=== PATIENT | male | born 1945 | race Caucasian/White ===

== ENCOUNTER → 2017-03-13 | Outpatient (CLI) | payer MEDICARE ==
--- NOTE | 2017-03-13 09:52 | US ---
EXAMINATION TYPE: US duplex aorta DATE OF EXAM: 03/13/2017 COMPARISON: NONE CLINICAL HISTORY: I73.9 PERIPHERAL VASCULAR DISEASE. Patient stated has bilateral leg cramping after walking for 15 minutes on treadmill and symptoms are relieved by standing still; Cancer survivor for Lung CA and Melanoma EXAM MEASUREMENTS: Abdominal Aorta: Proximal: 2.8cm Transverse and is difficult to visualize due to overlying bowel gas Mid: 2.4cm Transverse Distal: 2.7cm Transverse Bifurcation: 1.6cm Transverse Right Common Iliac Artery; 1.5 cm A/P Left Common Iliac Artery. Upper abdominal aorta size is widened as seen in 2 views, but is limited by overlying bowel gas. Irre gular intimal wall thickening is noted throughout aorta and especially in proximal Common Iliac Arter ies; widening of lower abdominal aorta is imaged, but size is still wnl. Color flow patency and PW Do ppler of Aorta and color flow of Common Iliac Arteries is documented. Exam is suboptimal due to overlying bowel gas. 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 No greater than 3 cm aneurysmal change is clearly seen. IMPRESSION: Suboptimal study with ectasia of the abdominal aorta but no greater than 3 cm aneurysmal change clearly identified.
--- NOTE | 2017-03-21 09:58 | P.ARTDOP ---
Arterial Doppler LOWER EXTREMITY ARTERIAL DOPPLER: DATE OF SERVICE: 03/13/2017 Reason for study: Claudication. Doppler waveforms: Multiphasic but blunted throughout bilaterally. Pulse volume recording: []. Pressure gradients: At the thigh level on the right and below the knee on the left. Mild gradient across the knee on the right. Ankle-brachial indices: 0.85 on the right and 0.92 on the left. Toe pressures: 64 on the right, 78 on the left Impression: Suggests mild bilateral disease. Iliofemoral on the right and femoral popliteal on the left. Clinical correlation recommended.
== END | disposition home or self-care (01) ==
LOC: RADUSWWP 08:07
PROVIDERS: ATTEND Internal Medicine
DX: I77.811 Abdominal aortic ectasia (principal)
CPT/HCPCS: 93923; 93979

== ENCOUNTER → 2017-05-19 | Outpatient (CLI) | payer MEDICARE ==
--- NOTE | 2017-05-21 14:59 | PE ---
Nuclear medicine PET/CT HISTORY: Pancreatic carcinoma, initial, C 25.9 Patient received 15.4 mCi F-18 FDG intravenously in delayed scanning was performed from the skull bas e to the mid thighs. Localization and attenuation correction CT scan was also performed. Comparison to MR abdomen dated 05/16/2017, CT abdomen pelvis 05/07/2017 Neck and chest: There is no evident adenopathy. No suspicious hypermetabolic uptake. No pleural or pe ricardial effusion. Dense atheromatous change present within the aorta, superior aortic branch vessel s. There are coronary artery calcifications. No evident lung mass. Apical pleural thickening is prese nt on the right greater than left. Postop changes are noted status post lobectomy on the right. There is volume loss in the right hemithorax. Abdomen pelvis: There is a drainage catheter present coursing towards the midline the level of the ga stroesophageal junction. Extensive diverticular changes associated with the colon, retained contrast material is likely present. Left inguinal hernia contains fat. No retroperitoneal adenopathy. The head of the pancreas region shows bowel with thickened wall with associated hypermetabolic uptake , SUV is 9.7 Bowel activity likely due to physiologic causes. Prostate is enlarged. There is associated calcificat ion. Postop changes noted along the anterior abdomen, aspen are present. Osseous structures show degenerative changes within the lumbar spine, facet arthropathy changes prese nt. There is a spinal curvature. IMPRESSION: Suspect findings may be postoperative, there may be a Limited duodenitis, follow-up. Dive rticulosis. Postop changes.
== END | disposition home or self-care (01) ==
LOC: RADPETMAIN 13:28
PROVIDERS: ATTEND Internal Medicine Hematology & Oncology
DX: C25.9 Malignant neoplasm of pancreas, unspecified (principal); K57.30 Diverticulosis of large intestine without perforation or abscess without bleeding; Z98.890 Other specified postprocedural states
CPT/HCPCS: 78815; A9552

== ENCOUNTER → 2018-03-19 | Outpatient (CLI) | payer MEDICARE ==
--- NOTE | 2018-03-19 23:00 | CT ---
EXAMINATION TYPE: CT chest w con DATE OF EXAM: 03/19/2018 COMPARISON: PET CT 05/19/2017 HISTORY: 72-year-old male abnormal findings of lung zhong. Technologist reports a history of lung an d pancreas cancer as well as melanoma. Last chemotherapy radiation to08/13/2017. Left Hilar Prominence TECHNIQUE: Contiguous axial scanning of the chest after the administration of 80 mL of Isovue 300. C oronal/sagittal reconstructions performed. CT DLP: 326.8mGycm. Automatic exposure control utilized for a dose reduction. FINDINGS: Heart normal size without pericardial effusion. Coronary vessel calcifications are present. Aorta normal caliber with mild to moderate atherosclerotic arch calcifications and conventional arch vessel branching anatomy. Large caliber to the main right and left pulmonary arteries at 3.3 and 3.1 cm, respectively, suggesti ng underlying pulmonary hypertension. Right anterior chest wall injection port with catheter tip at the mid SVC. Asymmetric elevation of the right hemidiaphragm with some strandy scarring at the right base. There i s moderate centrilobular emphysema and surgical material along the right upper to midlung with strand y scarring extending to the right hilum. Status post right upper lobectomy. Mild diffuse bronchial wa ll thickening. No thoracic lymphadenopathy by CT size criteria. No hilar masses identified. Tiny hiatal hernia. A couple subcentimeter hypodensities within the left hepatic lobe appear to have been present previou sly. Larger hypodense lesion near the gallbladder fossa was also present previously measuring 2.6 cm compatible with a cyst. Postsurgical changes of Whipple there is some prominent lymph nodes in soft t issue stranding in the periaortic region just below the level of the kidneys, for example, the first 2 axial image 75. Surveillance is recommended as these changes may be increased from the 05/19/2017 P ET/CT. Diffuse colonic diverticulosis with diffuse wall thickening. Bones: Endplate spondylosis throughout. No osseous destructive process. IMPRESSION: 1. COPD with moderate emphysema and prior right upper lobectomy. Areas of pleural parenchymal scarrin g, volume loss in the right hemithorax, and surgical material on the right are unchanged. 2. Bilateral hilar enlargement relating to pulmonary arterial hypertension. 3. Status post Whipple procedure. There is some strandy soft tissue thickening and associated promine nt lymph nodes in the retroperitoneum just below the level of the kidneys which may be increased from 05/19/2017. Refer to axial image 17. Appropriate surveillance and follow-up is recommended. 4. Diffuse colonic diverticulosis with mild diffuse colonic wall thickening. Correlate for nonspecifi c colitis.
== END ==
LOC: RADCTMAIN 12:56
PROVIDERS: ATTEND Internal Medicine
DX: J43.9 Emphysema, unspecified (principal); J98.4 Other disorders of lung; I27.21 Secondary pulmonary arterial hypertension; R91.8 Other nonspecific abnormal finding of lung field; Z90.2 Acquired absence of lung [part of]; Z85.118 Personal history of other malignant neoplasm of bronchus and lung
CPT/HCPCS: 82565; 84520; 71260; 36415; Q9967

== ENCOUNTER → 2018-04-11 | Outpatient (CLI) | payer MEDICARE ==
--- NOTE | 2018-04-15 19:05 | BD ---
EXAMINATION TYPE: Axial Bone Density DATE OF EXAM: 04/11/2018 COMPARISON: NONE CLINICAL HISTORY: 72 YR OLD MALE.....ICD-10 CODE: R29.890 HEIGHT LOSS Height: 68.2 Weight: 172 FRAX RISK QUESTIONS: NOTHING TO NOTE HERE RISK FACTORS HISTORY OF: Active: NOT VERY Lost more than 2 inches in height since high school: YES MEDICATIONS: Additional Medications: VITAMINS, HX OF CHEMO AND RADIATION IN PAST, VIT D3, CALCIUM, Additional History: HX OF PANCREATIC CA, LUNG CA AND MELANOMA ...WAS TOLD HE HAS DEFECTIVE DNA.. HX O F BYPASS SURG, VEIN STRIPPING BOTH LEGS. EXAM MEASUREMENTS: Bone mineral densitometry was performed using the [employer] System. Bone mineral density as measured about the Lumbar spine is: ----- L1-L4(G/cm2): 1.388 T Score Values are as follows: ----- L1: 0.1 ----- L2: 0.8 ----- L3: 2.9 ----- L4: 3.1 ----- L1-L4: 1.7 Bone mineral density FIRST BONE DENSITY TEST.....BASELINE STUDY Bone mineral density about the R hip (g/cm2): 0.904 Bone mineral density about the L hip (g/cm2): 1.104 T Score values are as follows: -----R Neck: -0.2 -----L Neck: 0.9 -----R Total: -0.8 -----L Total: 0.8 Bone mineral density FIRST BONE DENSITY .....BASELINE STUDY FRAX%s: THERE IS A 5.1% CHANCE FOR A MAJOR OSTEOPOROTIC FX AND A 0.8% FOR HIP FX.....PROBABILITY O F FX IN 10 YRS TIME IMPRESSION: Normal (Values between +1 and -1 indicate normal bone mass). However, measurements are approaching o steopenia at the right hip. Consider repeating this study in 5 years or sooner if there is some new clinical indication. NOTE: T-SCORE=SD OF THE YOUNG ADULT MEAN.
== END | disposition home or self-care (01) ==
LOC: RADBDWWP 15:50
PROVIDERS: ATTEND Internal Medicine
DX: R29.890 Loss of height (principal)
CPT/HCPCS: 77080

== ENCOUNTER 2018-06-13 15:59 | Inpatient (IN) | payer MEDICARE, OTHER ==
[2018-06-13] MEDS ORDERED: SODIUM CHLORIDE 0.9% 1,000 ML IV STA (16:48)
[2018-06-13] MEDS ORDERED: IPRATROPIUM-ALBUTEROL 3 ML NEB INHALATION STA (16:48)
[2018-06-13] MEDS ORDERED: ACETAMINOPHEN IV (For NPO) 1,000 MG in EMPTY BAG 1 BAG IVPB STA (17:49)
[2018-06-13] MEDS ORDERED: IBUPROFEN IV 800 MG in SODIUM CHLORIDE 0.9% 250 ML IV STA (17:49)
--- NOTE | 2018-06-13 17:49 | ED ---
SOB HPI - General Chief Complaint: Shortness of Breath Stated Complaint: POSS PNEUMO, LOW O2 Time Seen by Provider: 06/13/18 16:43 Source: patient Mode of arrival: wheelchair Limitations: no limitations - History of Present Illness Initial Comments: This is a 72-year-old male the ER for evaluation, he presents today for evaluation of fever shortness of breath cough and congestion weakness 4 days. No nausea no vomiting no diarrhea. Patient having difficulty breathing, sent in by Dr. simons for further evaluation regarding dehydration fever and underlying sepsis. Possible PE. Patient has no recent travel history no sick contacts no recent significant hospitalizations. MD Complaint: shortness of breath, cough -: days(s) (5) Radiation: back Severity: mild Severity scale (1-10): 3 Quality: aching Consistency: constant Improves With: oxygen, bronchodilators Worsens With: exertion Known History Of: COPD, other (Lungs CTA) Context: recent URI, other (Fever) Associated Symptoms: fever, cough, sputum production - Related Data Home Medications Medication Instructions Recorded Confirmed Cholecalciferol [Vitamin D3] 2,000 unit PO DAILY 05/13/15 06/13/18 Fish Oil/Dha/Epa [Fish Oil 1,200 2 cap PO DAILY 05/13/15 06/13/18 mg Fish Oil] Multivitamin/Iron/Folic Acid 1 tab PO DAILY 05/07/17 06/13/18 [Centrum Complete Multivit Tab] Aspirin 81 mg PO DAILY 06/13/18 06/13/18 Allergies Allergy/AdvReac Type Severity Reaction Status Date / Time levofloxacin AdvReac Unknown UNABLE TO Verified 06/13/18 17:31 SLEEP Review of Systems ROS Statement: Those systems with pertinent positive or pertinent negative responses have been documented in the HPI. ROS Other: All systems not noted in ROS Statement are negative. Past Medical History Past Medical History: Cancer, Hyperlipidemia Additional Past Medical History / Comment(s): HX OF LUNG CA WITH 2/3 OF RIGHT LUNG REMOVED (2000), & MELANOMA SKIN CA., HX OF DIVERTICULITIS., ANEMIA. PANCREATIC CA History of Any Multi-Drug Resistant Organisms: None Reported Past Surgical History: Hernia Repair, Tonsillectomy Additional Past Surgical History / Comment(s): HEMORRHOIDS, ING HERNIA, 1/2 OF LARGE COLON REMOVED (2011), 2/3 OF RIGHT LUNG REMOVED (2000). Past Anesthesia/Blood Transfusion Reactions: No Reported Reaction Past Psychological History: No Psychological Hx Reported Smoking Status: Former smoker Past Alcohol Use History: None Reported, Rare Past Drug Use History: None Reported - Past Family History Mother Family Medical History: No Reported History General Exam Limitations: no limitations General appearance: alert, in no apparent distress Head exam: Present: atraumatic, normocephalic, normal inspection Eye exam: Present: normal appearance, PERRL, EOMI. Absent: scleral icterus, conjunctival injection, periorbital swelling ENT exam: Present: normal exam, mucous membranes dry Neck exam: Present: normal inspection. Absent: tenderness, meningismus, lymphadenopathy Respiratory exam: Present: wheezes, accessory muscle use, decreased breath sounds, prolonged expiratory. Absent: respiratory distress, rales, rhonchi, stridor Cardiovascular Exam: Present: normal rhythm, tachycardia, normal heart sounds. Absent: systolic murmur, diastolic murmur, rubs, gallop, clicks GI/Abdominal exam: Present: soft, normal bowel sounds. Absent: distended, tenderness, guarding, rebound, rigid Extremities exam: Present: normal inspection, full ROM, normal capillary refill. Absent: tenderness, pedal edema, joint swelling, calf tenderness Back exam: Present: normal inspection Neurological exam: Present: alert, oriented X3, CN II-XII intact Psychiatric exam: Present: normal affect, normal mood Skin exam: Present: warm, dry, intact, normal color. Absent: rash Course Vital Signs 06/13/18 06/13/18 06/13/18 16:01 17:07 17:21 Temperature 100.5 F H Pulse Rate 105 H 104 H 101 H Respiratory 24 Rate Blood Pressure 164/78 O2 Sat by Pulse 92 L Oximetry - Reevaluation(s) Reevaluation #1: 06/13/18 18:44 Medical records are reviewed Reevaluation #2: 06/13/18 18:44 Symptoms improved with fever control, hydration, breathing treatment Medical Decision Making - Medical Decision Making 72 male the ER for evaluation of fever, underlying CVA, patient has cough and congestion shortness of breath will admit for breathing treatments, fever control and IV antibiotics - Lab Data Result diagrams: 06/13/18 17:40 06/13/18 17:40 Lab Results 06/13/18 06/13/18 06/13/18 Range/Units 17:40 17:40 17:40 WBC 8.2 (3.8-10.6) k/uL RBC 4.35 (4.30-5.90) m/uL Hgb 12.5 L (13.0-17.5) gm/dL Hct 37.3 L (39.0-53.0) % MCV 85.6 (80.0-100.0) fL MCH 28.7 (25.0-35.0) pg MCHC 33.5 (31.0-37.0) g/dL RDW 16.0 H (11.5-15.5) % Plt Count 166 (150-450) k/uL Neutrophils % 85 % Lymphocytes % 8 % Monocytes % 5 % Eosinophils % 0 % Basophils % 0 % Neutrophils # 7.0 (1.3-7.7) k/uL Lymphocytes # 0.7 L (1.0-4.8) k/uL Monocytes # 0.4 (0-1.0) k/uL Eosinophils # 0.0 (0-0.7) k/uL Basophils # 0.0 (0-0.2) k/uL PT (9.0-12.0) sec INR (<1.2) APTT (22.0-30.0) sec Sodium 130 L (137-145) mmol/L Potassium 4.1 (3.5-5.1) mmol/L Chloride 101 (98-107) mmol/L Carbon Dioxide 20 L (22-30) mmol/L Anion Gap 9 mmol/L BUN 31 H (9-20) mg/dL Creatinine 0.94 (0.66-1.25) mg/dL Est GFR (CKD-EPI)AfAm >90 (>60 ml/min/1.73 sqM) Est GFR (CKD-EPI)NonAf 81 (>60 ml/min/1.73 sqM) Glucose 116 H (74-99) mg/dL Calcium 8.4 (8.4-10.2) mg/dL Magnesium 1.9 (1.6-2.3) mg/dL Total Bilirubin 0.8 (0.2-1.3) mg/dL AST 36 (17-59) U/L ALT 46 (21-72) U/L Alkaline Phosphatase 120 (38-126) U/L Total Creatine Kinase 61 (55-170) U/L CK-MB (CK-2) 0.3 (0.0-2.4) ng/mL CK-MB (CK-2) Rel Index 0.5 Troponin I 0.013 (0.000-0.034) ng/mL NT-Pro-B Natriuret Pep pg/mL Total Protein 6.6 (6.3-8.2) g/dL Albumin 3.8 (3.5-5.0) g/dL 06/13/18 06/13/18 Range/Units 17:40 17:40 WBC (3.8-10.6) k/uL RBC (4.30-5.90) m/uL Hgb (13.0-17.5) gm/dL Hct (39.0-53.0) % MCV (80.0-100.0) fL MCH (25.0-35.0) pg MCHC (31.0-37.0) g/dL RDW (11.5-15.5) % Plt Count (150-450) k/uL Neutrophils % % Lymphocytes % % Monocytes % % Eosinophils % % Basophils % % Neutrophils # (1.3-7.7) k/uL Lymphocytes # (1.0-4.8) k/uL Monocytes # (0-1.0) k/uL Eosinophils # (0-0.7) k/uL Basophils # (0-0.2) k/uL PT 11.0 (9.0-12.0) sec INR 1.0 (<1.2) APTT 29.0 (22.0-30.0) sec Sodium (137-145) mmol/L Potassium (3.5-5.1) mmol/L Chloride (98-107) mmol/L Carbon Dioxide (22-30) mmol/L Anion Gap mmol/L BUN (9-20) mg/dL Creatinine (0.66-1.25) mg/dL Est GFR (CKD-EPI)AfAm (>60 ml/min/1.73 sqM) Est GFR (CKD-EPI)NonAf (>60 ml/min/1.73 sqM) Glucose (74-99) mg/dL Calcium (8.4-10.2) mg/dL Magnesium (1.6-2.3) mg/dL Total Bilirubin (0.2-1.3) mg/dL AST (17-59) U/L ALT (21-72) U/L Alkaline Phosphatase (38-126) U/L Total Creatine Kinase (55-170) U/L CK-MB (CK-2) (0.0-2.4) ng/mL CK-MB (CK-2) Rel Index Troponin I (0.000-0.034) ng/mL NT-Pro-B Natriuret Pep 534 pg/mL Total Protein (6.3-8.2) g/dL Albumin (3.5-5.0) g/dL - EKG Data -: EKG Interpreted by Me (EKG shows sinus rhythm rate of 95, KS 106, QRS 82, QTc 447) - Radiology Data Radiology results: report reviewed (Chest x-rays negative for acute disease, CTA chest), image reviewed Disposition Clinical Impression: Community acquired pneumonia, Acute exacerbation of chronic obstructive airways disease, Fever Disposition: ADMITTED IP TO THIS HOSP Condition: Fair Is patient prescribed a controlled substance at d/c from ED?: No Referrals: Art Mendoza MD [Primary Care Provider] - 1-2 days
[2018-06-13 18:01] LABS: Basophils % (A) 0 %; Eosinophils % (A) 0 %; HCT 37.3 % (39.0-53.0); HGB 12.5 gm/dL (13.0-17.5); Lymphocytes # (A) 0.7 k/uL (1.0-4.8); Lymphocytes % (A) 8 %; MCH 28.7 pg (25.0-35.0); MCHC 33.5 g/dL (31.0-37.0); MCV 85.6 fL (80.0-100.0); Mean Platelet Volume 6.9; Monocytes # (A) 0.4 k/uL (0-1.0); Monocytes % (A) 5 %; Neutrophils % (A) 85 %; Platelet Count 166 k/uL (150-450); RBC 4.35 m/uL (4.30-5.90); WBC 8.2 k/uL (3.8-10.6)
[2018-06-13 18:22] LABS: ALT 46 U/L (21-72); AST 36 U/L (17-59); Albumin 3.8 g/dL (3.5-5.0); Alkaline Phosphatase 120 U/L (38-126); Anion Gap 9 mmol/L; Blood Urea Nitrogen 31 mg/dL (9-20); Calcium 8.4 mg/dL (8.4-10.2); Carbon Dioxide 20 mmol/L (22-30); Chloride 101 mmol/L (98-107); Glucose 116 mg/dL (74-99); Magnesium 1.9 mg/dL (1.6-2.3); Potassium 4.1 mmol/L (3.5-5.1); Sodium 130 mmol/L (137-145); Total Bilirubin 0.8 mg/dL (0.2-1.3); Total Protein 6.6 g/dL (6.3-8.2)
--- NOTE | 2018-06-13 18:29 | XR ---
EXAMINATION TYPE: XR chest 2V DATE OF EXAM: 06/13/2018 COMPARISON: NONE HISTORY: Difficulty breathing TECHNIQUE: Frontal and lateral views of the chest are obtained. FINDINGS: There is coarsening of the lung markings in the lower lobes. There is flattening of the di aphragm. There is no heart failure. Heart size is normal. There is slight blunting of right costophre ruthie angle. There is right central venous catheter with tip in the superior vena cava. Bony thorax matthew ears intact. IMPRESSION: COPD and pulmonary fibrosis. Pleural diaphragmatic scarring at the right lung base. No h eart failure.
[2018-06-13 18:31] LABS: Creatine Kinase MB 0.3 ng/mL (0.0-2.4); Troponin I 0.013 ng/mL (0.000-0.034)
[2018-06-13] MEDS ORDERED: PNEUMONIA PROTOCOL UTILIZED 1 EACH MISC PO PRN (18:45)
[2018-06-13] MEDS ORDERED: PIPERACILLIN-TAZOBACTAM 3.375 GM in SODIUM CHLORIDE 0.9% 100 ML IVPB STA (18:45)
[2018-06-13] MEDS ORDERED: LEVOFLOXACIN 750MG-D5W PMX 750 MG in DEXTROSE/WATER 1 150ML.BAG IVPB STA (18:45)
[2018-06-13] MEDS ORDERED: AZITHROMYCIN 500 MG in SODIUM CHLORIDE 0.9% 250 ML IVPB STA (18:47)
--- NOTE | 2018-06-13 20:41 | CT ---
EXAMINATION TYPE: CT angio chest DATE OF EXAM: 06/13/2018 8:22 PM COMPARISON: None HISTORY: chest pain, SOB. hx of lung ca CT DLP: 410.1 mGycm Automated exposure control for dose reduction was used. CONTRAST: CTA scan of the thorax is performed with IV Contrast, patient injected with 80 mL of Isovue 370, pulm onary embolism protocol. There are 3-D post processed images.. FINDINGS: There is patchy scarring and atelectasis in the right upper lobe. Thoracic aorta is atheromatous. The re is no mediastinal adenopathy. There are no hilar masses. Heart size is normal. There is some airsp tristan patchy consolidation at the posterior lung bases. There is mild pulmonary emphysema. Thoracic aor ta shows no evidence of aneurysm or dissection. There is some spurring in the thoracic spine. I see n o bony destructive process. I see no filling defects in the pulmonary arteries. IMPRESSION: NO EVIDENCE OF PULMONARY EMBOLISM. PATCHY INFILTRATE AND ATELECTASIS AT THE POSTERIOR LUNG BASES. Pul monary infiltrates are new compared to CT scan of 03/19/2018. This is consistent with bronchopneumonia . COPD.
[2018-06-14] MEDS: IPRATROPIUM-ALBUTEROL 3 ML NEB INHALATION SCH ×6 (00:46→19:54)
[2018-06-14] MEDS ORDERED: IPRATROPIUM-ALBUTEROL 3 ML NEB INHALATION PRN (01:00)
[2018-06-14] MEDS: SODIUM CHLORIDE 0.9% 1,000 ML IV SCH ×4 (03:40→23:38)
[2018-06-14] MEDS: PIPERACILLIN-TAZOBACTAM 3.375 GM in SODIUM CHLORIDE 0.9% 100 ML IVPB SCH ×4 (04:21→23:12)
[2018-06-14] MEDS: ENOXAPARIN 40 MG/0.4 ML SYRINGE SQ SCH (08:13)
--- NOTE | 2018-06-14 10:58 | XR ---
EXAMINATION TYPE: XR chest 2V DATE OF EXAM: 06/14/2018 COMPARISON: Prior chest x-ray 06/13/[address] chest 06/13/2018 HISTORY: Pneumonia, cough TECHNIQUE: Frontal and lateral views of the chest are obtained. FINDINGS: Findings are similar to prior. Port-A-Cath is stable. Prominence of the pulmonary artery c ould be due to underlying pulmonary artery hypertension. Prominent lung volumes suggest underlying em physema. There is no evident pneumothorax or pleural effusion. Bilateral patchy density persists at t he lung bases. No definite pleural effusion. Biapical pleural thickening is present. Aorta is dense. Postop changes are noted, there is volume loss in the right hemithorax. IMPRESSION: Correlate for bilateral basilar pneumonia.
--- NOTE | 2018-06-14 11:01 | P.CONS ---
History of Present Illness - Reason for Consult Consult date: 06/14/18 HX: Lung cancer and Melonoma Requesting physician: Bernabe Morel - Chief Complaint Shortness of Breath - History of Present Illness Mr. Romano is a pleasant 72 year old male patient with a remote malignancy history of lung cancer (early stage) and Melanoma, both which were treated surgically not requiring further intervention. In April of 2017, he was referred by Dr. Mendoza for evaluation/treatment of chronic anemia (previous EGD and Colonoscopy neg to this date). Initially evaluated by Dr. Shen. In 2016 he was admitted to [facility] with intractable nausea and vomiting. Repeat EGD was performed which failed to show any abnormality. Therefore further exploration was done with Dr. Tejeda who identified mass in retroperitoneum, pathology resulted as adenocarcinoma consistent with pancreatic origin. Oncology was consulted at that time and we further evaluated with a PET scan, showing limited disease. We sent patient for further surgical consultation of whipple procedure to [facility], he chose to seek a second opinion through Dr. Yaya Chauhan at that time who treated him floyd- adjuvantly with chemoradiation. He underwent whipple in August 2017 in [place] by Dr. Alissa Barajas. Unfortunetly he experienced post-operative complications of infection, requiring prolonged IV antibiotic and TPN infusions. His recovery lasted through December of 2017, until the patient states he was able to perform his ADLs without difficulty. He is very active. He exercises at [employer] walking a minimum of 5 miles a day on the [employer], and light weight exercises. This past week he has felt he was coming down with a cold. His symptms persisted and when he found he couldnt walk even a block without having to rest he presented to [facility] for further evaluation. On admission he was diagnosed with pneumonia, IV antibiotics have been started. Oncology has been consulted for his history of multiple early stage primary malignancies. At this time he appears to not have recurrence of disease. He will continue treatment for his acute illness and follow-up back with primary oncologist Dr. Polly Chauhan. Review of Systems A 14 point review of systems assessed and completed and all negative except HPI. Past Medical History Past Medical History: Cancer, Hyperlipidemia Additional Past Medical History / Comment(s): HX OF LUNG CA WITH 2/3 OF RIGHT LUNG REMOVED (2000), & MELANOMA SKIN CA., HX OF DIVERTICULITIS., ANEMIA. PANCREATIC CA History of Any Multi-Drug Resistant Organisms: None Reported Past Surgical History: Hernia Repair, Tonsillectomy Additional Past Surgical History / Comment(s): HEMORRHOIDS, ING HERNIA, 1/2 OF LARGE COLON REMOVED (2011), 2/3 OF RIGHT LUNG REMOVED (2000). Past Anesthesia/Blood Transfusion Reactions: No Reported Reaction Past Psychological History: No Psychological Hx Reported Smoking Status: Former smoker Past Alcohol Use History: None Reported, Rare Past Drug Use History: None Reported - Past Family History Mother Family Medical History: No Reported History Medications and Allergies Home Medications Medication Instructions Recorded Confirmed Type Cholecalciferol [Vitamin D3] 2,000 unit PO DAILY 05/13/15 06/13/18 History Fish Oil/Dha/Epa [Fish Oil 1,200 2 cap PO DAILY 05/13/15 06/13/18 History mg Fish Oil] Multivitamin/Iron/Folic Acid 1 tab PO DAILY 05/07/17 06/13/18 History [Centrum Complete Multivit Tab] Aspirin 81 mg PO DAILY 06/13/18 06/13/18 History Allergies Allergy/AdvReac Type Severity Reaction Status Date / Time levofloxacin AdvReac Unknown UNABLE TO Verified 06/13/18 17:31 SLEEP Physical Exam Vitals: Vital Signs Temp Pulse Pulse Resp BP BP Pulse Ox 06/14/18 06:39 97.5 F L 72 17 92 L 06/14/18 04:45 106/58 06/14/18 01:48 97.4 F L 69 17 99/58 94 L 06/14/18 01:05 75 06/14/18 01:00 64 06/14/18 00:48 97.6 F 65 19 93/52 96 06/13/18 17:21 101 H 06/13/18 17:07 104 H 06/13/18 16:01 100.5 F H 105 H 24 164/78 92 L Intake and Output 06/13/18 06/14/18 06/14/18 22:59 06:59 14:59 Other: Voiding Method Toilet # Voids 1 1 Weight 77.564 kg 77.564 kg - Constitutional General appearance: cooperative, no acute distress - EENT Eyes: EOMI, dentition normal ENT: NA/AT, normal oropharynx - Neck Neck: normal ROM - Cardiovascular Rhythm: regular Heart sounds: normal: S1, S2 - Gastrointestinal General gastrointestinal: normal bowel sounds, soft - Integumentary Integumentary: normal - Neurologic Neurologic: CNII-XII intact - Musculoskeletal Musculoskeletal: gait normal, generalized weakness, strength equal bilaterally - Psychiatric Psychiatric: A&O x's 3, appropriate affect, intact judgment & insight Results CBC & Chem 7: 06/13/18 17:40 06/13/18 17:40 Labs: Abnormal Lab Results - Last 24 Hours (Table) 06/13/18 06/13/18 Range/Units 17:40 17:40 Hgb 12.5 L (13.0-17.5) gm/dL Hct 37.3 L (39.0-53.0) % RDW 16.0 H (11.5-15.5) % Lymphocytes # 0.7 L (1.0-4.8) k/uL Sodium 130 L (137-145) mmol/L Carbon Dioxide 20 L (22-30) mmol/L BUN 31 H (9-20) mg/dL Glucose 116 H (74-99) mg/dL Assessment and Plan Plan: Assessment and Recommendations: 1. Community Acquired Pneumonia - Per Primary Team - IV Antibiotics and supportive care 2. Recent History Stage 2 Pancreatic Adenocarcinoma - Diagnosed in May 2017, Status POst Floyd-adjuvant Chemotherapy and Radiation June)-Aug (2017) - Status Post Whipple August 2017 - COmplicated infection post operatively requiring TPN and IV antibiotics - No signs of recurrence - FOllow-up with Dr. Chauhan after discharge 3. Remote history of early stage lung cancer and Melanoma both treated surgically Thank you for allowing us to participate in the care of this patient we will follow along with you. Megan GROVESPaulina
[2018-06-14] MEDS: ASPIRIN 81 MG PO SCH (12:43)
[2018-06-14] MEDS: AZITHROMYCIN 500 MG in SODIUM CHLORIDE 0.9% 250 ML IVPB SCH (12:43)
[2018-06-14] MEDS: MULTIVITAMINS, THERA 1 EACH TAB PO SCH (12:43)
[2018-06-14] MEDS ORDERED: CALCIUM CARBONATE 500 MG CHEWABLE PO PRN (20:47)
[2018-06-14] MEDS ORDERED: MAGNESIUM HYDROXIDE 2,400 MG/10 ML CUP PO PRN (20:47)
[2018-06-14] MEDS ORDERED: ALPRAZolam 0.25 MG TAB PO PRN (20:47)
[2018-06-14] MEDS ORDERED: NALOXONE 0.4 MG/ML 1 ML VIAL IV PRN (20:47)
[2018-06-14] MEDS ORDERED: ONDANSETRON 4 MG/2 ML VIAL IVP PRN (20:47)
[2018-06-14] MEDS ORDERED: MELATONIN 3 MG TABLET PO PRN (20:47)
[2018-06-14] MEDS ORDERED: LACTULOSE 20 GM/30 ML CUP PO PRN (20:47)
[2018-06-14] MEDS ORDERED: ACETAMINOPHEN TAB 325 MG TAB PO PRN (20:47)
--- NOTE | 2018-06-14 21:20 | P.HPIM ---
History of Present Illness H&P Date: 06/14/18 Chief Complaint: Fever History of presenting complaint: This is a very pleasant 72-year-old patient of Dr. Fuller. Chronic stable medical conditions include hyperlipidemia, BPH, right two thirds lobectomy done for lung cancer, and partial colectomy done for redundant colon. 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 Patient did have a follow-up PET scan by Dr. Aranda on 05/19/2017 the results of which were nonspecific. Patient now presents with respiratory symptoms. Patient had 2 grandchildren visiting ages of 6 and, last week. Both had cough and sneezing. Following the weekend that is 5 days ago patient started feeling unwell started sneezing with clear sputum. Then his also got sick. There are progressed to more of a hacking cough with green-yellow sputum. Also developed fever and chills. Patient presented to the ER. Chest x-ray did confirm pneumonia. Started IV Zosyn and Zithromax. Admitted for the same. Review of systems: GEN.: Fever chills EYES: None HEENT: Sneezing NECK: None RESPIRATORY: As above] CARDIOVASCULAR: None GASTROINTESTINAL: None GENITOURINARY: None MUSCULOSKELETAL: None LYMPHATICS: None HEMATOLOGICAL: None PSYCHIATRY: None NEUROLOGICAL: None Past medical history: Hyperlipidemia, BPH, lung cancer with right two thirds lobectomy, partial colectomy for redundant colon,. Questionable pancreatic adenocarcinoma needs further clarification Social history: , lives with his , smokes 1 pack a day for over 30 years. Stopped over a year ago. Alcohol occasional Family history: Reviewed, noncontributory to presentation Physical examination: VITAL SIGNS: Temperature 100.5, pulse 105, respiration 24, blood pressure 164/78 , 92% room air GENERAL: Average built, sitting up, tired appearing. EYES: Pupils equal. Conjunctiva normal. HEENT: External appearance of nose and ears normal, oral cavity grossly normal. NECK: JVD not raised; masses not palpable. HEART: First and second heart sounds are normal; no edema. LUNGS: Respiratory rate increased, some crackles at the bases. ABDOMEN: Soft, nontender, liver spleen not palpable, no masses palpable. LYMPHATICS: No lymph nodes palpable in the axilla and neck. PSYCH: Alert and oriented x3; mood and affect normal. NEUROLOGICAL: Cranial nerves grossly intact; no facial asymmetry, power and sensation grossly intact. Labs: White count 8.2, hemoglobin 12.5, sodium 1:30, BUN 31, creatinine 0.94 Chest [id number] reviewed by me shows bibasal infiltrates right greater than left EKG-personally reviewed by me shows some ST segment changes in inferolateral leads CT chest-no PE. Infiltrates present Assessment: -Bilateral pneumonia, could be viral pneumonitis cannot rule out a bacterial component, causing sepsis present on admission -Abnormal EKG with some ST segment depression with no cardiac symptoms. -Hyperlipidemia -BPH -History of lung cancer with the right two thirds lobectomy -Questionable pancreatic adeno CA as per pathology report, and inconclusive PET scan's follow-up -Hyponatremia, likely hypoosmolar Plan: Patient started on IV Zosyn and Zithromax. Dr. Patrick from pulmonary was consulted. Also Dr. Aranda from oncology is consulted to follow up on the biopsy results with adenocarcinoma from May 2017. Patient may need a repeat PET scan. We'll also consult Dr. Joya for the same purpose. Home medications are reviewed. Lovenox for DVT prophylaxis. IV fluids. Blood cultures requested. Repeat labs in the morning. Care was discussed with the patient. We'll also do a 2-D echocardiogram and get a cardiology opinion. Past Medical History Past Medical History: Cancer, Hyperlipidemia Additional Past Medical History / Comment(s): HX OF LUNG CA WITH 2/3 OF RIGHT LUNG REMOVED (2000), & MELANOMA SKIN CA., HX OF DIVERTICULITIS., ANEMIA. PANCREATIC CA History of Any Multi-Drug Resistant Organisms: None Reported Past Surgical History: Hernia Repair, Tonsillectomy Additional Past Surgical History / Comment(s): HEMORRHOIDS, ING HERNIA, 1/2 OF LARGE COLON REMOVED (2011), 2/3 OF RIGHT LUNG REMOVED (2000). Past Anesthesia/Blood Transfusion Reactions: No Reported Reaction Past Psychological History: No Psychological Hx Reported Smoking Status: Former smoker Past Alcohol Use History: None Reported, Rare Past Drug Use History: None Reported - Past Family History Mother Family Medical History: No Reported History Medications and Allergies Home Medications Medication Instructions Recorded Confirmed Type Cholecalciferol [Vitamin D3] 2,000 unit PO DAILY 05/13/15 06/13/18 History Fish Oil/Dha/Epa [Fish Oil 1,200 2 cap PO DAILY 05/13/15 06/13/18 History mg Fish Oil] Multivitamin/Iron/Folic Acid 1 tab PO DAILY 05/07/17 06/13/18 History [Centrum Complete Multivit Tab] Aspirin 81 mg PO DAILY 06/13/18 06/13/18 History Allergies Allergy/AdvReac Type Severity Reaction Status Date / Time levofloxacin AdvReac Unknown UNABLE TO Verified 06/13/18 17:31 SLEEP Physical Exam Vitals: Vital Signs Temp Pulse Pulse Resp BP BP Pulse Ox 06/14/18 11:50 78 06/14/18 11:40 76 06/14/18 06:39 97.5 F L 72 17 92 L 06/14/18 04:45 106/58 06/14/18 01:48 97.4 F L 69 17 99/58 94 L 06/14/18 01:05 75 06/14/18 01:00 64 06/14/18 00:48 97.6 F 65 19 93/52 96 06/13/18 17:21 101 H 06/13/18 17:07 104 H 06/13/18 16:01 100.5 F H 105 H 24 164/78 92 L Intake and Output 06/13/18 06/14/18 06/14/18 22:59 06:59 14:59 Other: Voiding Method Toilet # Voids 1 1 Weight 77.564 kg 77.564 kg Results CBC & Chem 7: 06/13/18 17:40 06/13/18 17:40 Labs: Abnormal Lab Results - Last 24 Hours (Table) 06/13/18 06/13/18 Range/Units 17:40 17:40 Hgb 12.5 L (13.0-17.5) gm/dL Hct 37.3 L (39.0-53.0) % RDW 16.0 H (11.5-15.5) % Lymphocytes # 0.7 L (1.0-4.8) k/uL Sodium 130 L (137-145) mmol/L Carbon Dioxide 20 L (22-30) mmol/L BUN 31 H (9-20) mg/dL Glucose 116 H (74-99) mg/dL Thrombosis Risk Factor Assmnt - Choose All That Apply Any of the Below Risk Factors Present?: No Each Risk Factor Represents 2 Points: Age 61-74 years Thrombosis Risk Factor Assessment Total Risk Factor Score: 2 Thrombosis Risk Factor Assessment Level: Low Risk
[2018-06-15] MEDS: IPRATROPIUM-ALBUTEROL 3 ML NEB INHALATION SCH ×4 (07:23→19:56)
[2018-06-15 07:47] LABS: Anion Gap 6 mmol/L; Blood Urea Nitrogen 19 mg/dL (9-20); Carbon Dioxide 23 mmol/L (22-30); Chloride 110 mmol/L (98-107); Glucose 92 mg/dL (74-99); Potassium 3.9 mmol/L (3.5-5.1); Sodium 139 mmol/L (137-145)
[2018-06-15 07:48] LABS: Anisocytosis Slight; Basophils % (A) 0 %; Eosinophils % (A) 1 %; HCT 23.7 % (39.0-53.0); Lymphocytes # (A) 0.6 k/uL (1.0-4.8); Lymphocytes % (A) 10 %; MCH 27.4 pg (25.0-35.0); MCHC 31.3 g/dL (31.0-37.0); MCV 87.7 fL (80.0-100.0); Mean Platelet Volume 7.3; Monocytes # (A) 0.3 k/uL (0-1.0); Monocytes % (A) 5 %; Neutrophils # (A) 5.4 k/uL (1.3-7.7); Neutrophils % (A) 83 %; Platelet Count 168 k/uL (150-450); RBC 2.71 m/uL (4.30-5.90); RDW 16.5 % (11.5-15.5); WBC 6.5 k/uL (3.8-10.6)
[2018-06-15 07:57] LABS: HGB 7.4 gm/dL (13.0-17.5)
[2018-06-15] MEDS: AZITHROMYCIN 500 MG in SODIUM CHLORIDE 0.9% 250 ML IVPB SCH (08:28)
[2018-06-15] MEDS: ASPIRIN 81 MG PO SCH (09:51)
[2018-06-15] MEDS: ENOXAPARIN 40 MG/0.4 ML SYRINGE SQ SCH (09:51)
[2018-06-15] MEDS: PIPERACILLIN-TAZOBACTAM 3.375 GM in SODIUM CHLORIDE 0.9% 100 ML IVPB SCH ×2 (09:52→16:50)
[2018-06-15 11:56] LABS: Anisocytosis Slight; Basophils % (A) 0 %; Eosinophils # (A) 0.1 k/uL (0-0.7); Eosinophils % (A) 1 %; HCT 23.7 % (39.0-53.0); HGB 7.6 gm/dL (13.0-17.5); Lymphocytes % (A) 14 %; MCH 28.1 pg (25.0-35.0); MCHC 32.1 g/dL (31.0-37.0); MCV 87.6 fL (80.0-100.0); Mean Platelet Volume 8.2; Monocytes # (A) 0.4 k/uL (0-1.0); Monocytes % (A) 5 %; Neutrophils # (A) 5.8 k/uL (1.3-7.7); Neutrophils % (A) 79 %; Platelet Count 168 k/uL (150-450); RBC 2.71 m/uL (4.30-5.90); RDW 16.4 % (11.5-15.5); WBC 7.4 k/uL (3.8-10.6)
--- NOTE | 2018-06-15 12:05 | P.CNPUL ---
History of Present Illness Consult date: 06/15/18 Requesting physician: Bull Mckeon Reason for consult: dyspnea, abnormal CXR/CT Chief complaint: Shortness of breath, cough, congestion History of present illness: This is a very pleasant 72-year-old gentleman who follows with Dr. Mendoza as his primary care physician. He has a history of lung cancer status post lobectomy 2 on the right side [address] Yung. No chemo or radiation was required. He also has a history of melanoma on his back between the shoulder blades 10 years ago that was surgically resected. No chemo or radiation treatments done. Then in May 2017 he was diagnosed with adenocarcinoma of the pancreas. He had undergone 25 radiation treatments and chemotherapy with subsequent Whipple procedure in August 2017 performed in [place]. Following the surgery he did developed an abdominal infection was back in [place] for 3 weeks. Since that time however he had been doing quite well. He exercises for an hour 6 or 7 days a week. He is only on aspirin, multivitamin, fish oil in the outpatient setting. Approximate 4 days however he developed increasing shortness of breath, cough and congestion and presented here to the emergency room on 06/13/[address] angiogram ruled out pulmonary embolism there was noted patchy infiltrate and atelectasis in the posterior lung bases that was new compared to his last CT in March 2018. The pneumonia was considered and he was admitted for the same. He is seen today in consultation on the oncology unit here he is awake and alert in no acute distress. He is maintaining good O2 saturations in the 90s on room air. He did have a T-max of 101.6. He is currently afebrile. Hemodynamically stable. Blood culture reveals no growth. Sputum culture is pending. No leukocytosis. Hemoglobin 7.4. Creatinine 0.89. ProBNP 534. Influenza screen negative. He has been initiated on bronchodilators, Zosyn and azithromycin. Review of Systems Constitutional: Reports chills, Reports fever, Reports weakness Eyes: denies blurred vision, denies decreased vision Ears: deny: decreased hearing Ears, nose, mouth and throat: Denies headache, Denies sore throat Cardiovascular: Reports decreased exercise tolerance, Reports dyspnea on exertion, Reports shortness of breath Respiratory: Reports cough with sputum, Reports dyspnea Gastrointestinal: Denies abdominal pain, Denies diarrhea, Denies nausea, Denies vomiting Genitourinary: Reports as per HPI Musculoskeletal: Denies myalgias Integumentary: Denies pruritus, Denies rash Neurological: Denies numbness, Denies weakness Psychiatric: Denies anxiety, Denies depression Endocrine: Denies fatigue, Denies weight change Hematologic/Lymphatic: Reports as per HPI Allergic/Immunologic: Reports as per HPI Past Medical History Past Medical History: Cancer, Hyperlipidemia Additional Past Medical History / Comment(s): HX OF LUNG CA WITH 2/3 OF RIGHT LUNG REMOVED (2000), & MELANOMA SKIN CA., HX OF DIVERTICULITIS., ANEMIA. PANCREATIC CA History of Any Multi-Drug Resistant Organisms: None Reported Past Surgical History: Hernia Repair, Tonsillectomy Additional Past Surgical History / Comment(s): HEMORRHOIDS, ING HERNIA, 1/2 OF LARGE COLON REMOVED (2011), 2/3 OF RIGHT LUNG REMOVED (2000). Past Anesthesia/Blood Transfusion Reactions: No Reported Reaction Past Psychological History: No Psychological Hx Reported Smoking Status: Former smoker Past Alcohol Use History: None Reported, Rare Past Drug Use History: None Reported - Past Family History Mother Family Medical History: No Reported History Medications and Allergies Home Medications Medication Instructions Recorded Confirmed Type Cholecalciferol [Vitamin D3] 2,000 unit PO DAILY 05/13/15 06/13/18 History Fish Oil/Dha/Epa [Fish Oil 1,200 2 cap PO DAILY 05/13/15 06/13/18 History mg Fish Oil] Multivitamin/Iron/Folic Acid 1 tab PO DAILY 05/07/17 06/13/18 History [Centrum Complete Multivit Tab] Aspirin 81 mg PO DAILY 06/13/18 06/13/18 History Allergies Allergy/AdvReac Type Severity Reaction Status Date / Time levofloxacin AdvReac Unknown UNABLE TO Verified 06/13/18 17:31 SLEEP Physical Exam Vitals: Vital Signs Temp Pulse Pulse Resp BP Pulse Ox 06/15/18 11:18 80 06/15/18 07:39 88 06/15/18 07:23 84 06/15/18 04:33 97.8 F 68 16 118/59 94 L 06/15/18 01:26 98.6 F 06/14/18 23:39 103 H 18 06/14/18 23:17 100.1 F H 06/14/18 20:36 101.6 F H 103 H 18 165/72 93 L 06/14/18 20:09 76 06/14/18 19:55 75 06/14/18 18:45 94 L 06/14/18 16:27 76 06/14/18 16:19 99 06/14/18 16:18 72 06/14/18 13:23 97.9 F 77 22 115/71 96 06/14/18 11:50 78 Intake and Output 06/14/18 06/15/18 06/15/18 22:59 06:59 14:59 Intake Total 1270 1020 Balance 1270 1020 Intake: Intake, IV Titration 850 600 Amount Azithromycin 500 mg In 250 Sodium Chloride 0.9% 250 ml @ 250 mls/hr IVPB DAILY [facility] Rx#:[id number] Piperacillin-Tazobactam 3 100 .375 gm In Sodium Chloride 0.9% 100 ml @ 25 mls/hr IVPB Q8HR [facility] Rx# :[id number] Sodium Chloride 0.9% 1, 500 600 000 ml @ 100 mls/hr IV . Q10H [facility] Rx#:[id number] Oral 420 420 Other: Voiding Method Toilet Toilet # Voids 2 2 # Bowel Movements 1 Weight 77.564 kg - Constitutional General appearance: average body habitus, no acute distress - EENT Eyes: EOMI, PERRLA ENT: hearing grossly normal Ears: bilateral: normal - Neck Neck: normal ROM Carotids: bilateral: upstroke normal Thyroid: bilateral: normal size - Respiratory Respiratory: bilateral: rales - Cardiovascular Rhythm: regular Heart sounds: normal: S1, S2 - Gastrointestinal General gastrointestinal: normal bowel sounds - Integumentary Integumentary: normal turgor - Neurologic Neurologic: CNII-XII intact - Musculoskeletal Musculoskeletal: generalized weakness - Psychiatric Psychiatric: A&O x's 3, appropriate affect, intact judgment & insight Results - Laboratory Findings CBC and BMP: 06/15/18 07:10 06/15/18 07:10 PT/INR, D-dimer PT 11.0 sec (9.0-12.0) 06/13/18 17:40 INR 1.0 (<1.2) 06/13/18 17:40 Abnormal lab findings: Abnormal Labs 06/13/18 06/13/18 06/15/18 17:40 17:40 07:10 RBC 2.71 L Hgb 12.5 L 7.4 L D Hct 37.3 L 23.7 L RDW 16.0 H 16.5 H Lymphocytes # 0.7 L 0.6 L Sodium 130 L Chloride Carbon Dioxide 20 L BUN 31 H Glucose 116 H Calcium 06/15/18 07:10 RBC Hgb Hct RDW Lymphocytes # Sodium Chloride 110 H Carbon Dioxide BUN Glucose Calcium 8.0 L - Diagnostic Findings Chest x-ray: image reviewed CT scan - chest: image reviewed Assessment and Plan Assessment: Impression: #1 Dyspnea secondary to bilateral pneumonia, suspect community-acquired. #2 Febrile illness secondary to above, improved. #3 History of right lung cancer status post lobectomy 17 years ago. No chemo or radiation at that time. #4 History of melanoma on the back status post resection. #5 Adenocarcinoma of the pancreas, status post radiation chemotherapy. Status post Whipple procedure in August 2017. #6 Hyperlipidemia. #[address] and T wave abnormalities. #8 Anemia. Plan: The patient was seen and evaluated by Dr. Patrick. Chest x-ray, CAT scan and labs were all reviewed. We will continue with bronchodilators and IV antibiotics. Blood and sputum cultures are pending. Lovenox for DVT prophylaxis. Echocardiogram pending. We will increase his activity as tolerated. We will continue to follow and make further recommendations based on his clinical status. I, the cosigning physician, performed a history & physical examination of the patient. Lungs sounds with crackles in bilateral posterior bases diminished in the right. Maintaining good O2 saturations in the 90s on room air. I discussed the assessment and plan of care with my nurse practitioner, Pati Kerns. I attest to the above consultation as dictated by her.t
[2018-06-15] MEDS: MULTIVITAMINS, THERA 1 EACH TAB PO SCH (12:12)
--- NOTE | 2018-06-15 12:34 | ECHOF ---
Referral Reason:st segment depression MEASUREMENTS -------- HEIGHT: 180.3 cm WEIGHT: 77.6 kg BP: IVSd: 0.9 cm (0.6 - 1.1) LVIDd: 4.2 cm (3.9 - 5.3) LVPWd: 0.9 cm (0.6 - 1.1) IVSs: 1.3 cm LVIDs: 2.6 cm LVPWs: 1.7 cm AV Cusp: 1.4 cm (1.5 - 2.6) MV E Stu: 0.42 m/s MV DecT: 194 ms MV A Stu: 0.37 m/s MV E/A Ratio: 1.13 AV maxP.76 mmHg AV meanP.96 mmHg AR PHT: 265 ms RAP: 5.00 mmHg RVSP: 28.56 mmHg FINDINGS -------- Sinus rhythm. This was a technically difficult study with suboptimal views. Study taken from [facility] due to c opd. The left ventricular size is normal. Left ventricular wall thickness is normal. Overall left vent ricular systolic function is normal with, an EF between 55 - 60 %. Right side appears enlarged. The left atrium is normal in size. The right atrium is normal in size. Aortic valve is trileaflet and is mildly thickened. There is mild aortic valve sclerosis. Peak/me an gradient across the Aortic Valve is 16.76mmHg / 11.96mmHg. The mitral valve leaflets are mildly thickened. Mild mitral regurgitation is present. Moderate to severe tricuspid regurgitation present. The right ventricular systolic pressure, as charito sured by Doppler, is 28.56mmHg. The pulmonic valve was not well visualized. The aortic root size is normal. Normal inferior vena cava with normal inspiratory collapse consistent with estimated right atrial pre ssure of 5 mmHg. The pericardium is normal. CONCLUSIONS -------- 1. Sinus rhythm. 2. This was a technically difficult study with suboptimal views. 3. Study taken from [facility] due to copd. 4. The left ventricular size is normal. 5. Left ventricular wall thickness is normal. 6. Overall left ventricular systolic function is normal with, an EF between 55 - 60 %. 7. Right side appears enlarged. 8. The left atrium is normal in size. 9. The right atrium is normal in size. 10. Aortic valve is trileaflet and is mildly thickened. 11. There is mild aortic valve sclerosis. 12. Peak/mean gradient across the Aortic Valve is 16.76mmHg / 11.96mmHg. 13. The mitral valve leaflets are mildly thickened. 14. Mild mitral regurgitation is present. 15. Moderate to severe tricuspid regurgitation present. 16. The right ventricular systolic pressure, as measured by Doppler, is 28.56mmHg. 17. The pulmonic valve was not well visualized. 18. The aortic root size is normal. 19. Normal inferior vena cava with normal inspiratory collapse consistent with estimated right atrial pressure of 5 mmHg. 20. The pericardium is normal. [employer]Y: Ana Deleon RDCS
--- NOTE | 2018-06-15 13:08 | P.GSCN ---
History of Present Illness Consult date: 06/15/18 History of present illness: CHIEF COMPLAINT: Pancreatic cancer HISTORY OF PRESENT ILLNESS: The patient is a 72-year-old male diagnosed with pancreatic cancer one year ago during exploratory laparotomy by Dr. Allan. He reports having his surgery done in [place] where he had a Whipple procedure. He sees his pancreatic surgeon Dr. Barajas regularly. He is pending a visit with his surgeon within the next month. He denies any abdominal pain. He is tolerating diet. No reports of fevers or chills. Separately, he is admitted secondary to pulmonary issues. PAST MEDICAL HISTORY: See list. PAST SURGICAL HISTORY: See list. MEDICATIONS: See list. ALLERGIES: See list. SOCIAL HISTORY: No illicit drug use FAMILY HISTORY: No reports of Crohn's disease or inflammatory bowel disease REVIEW OF ORGAN SYSTEMS: CONSTITUTIONAL: No fevers or chills HEENT: No troubles with vision or hearing. No reports of dysphagia. ENDOCRINE: No reports of thyroid disorders. No diabetes. CARDIOVASCULAR: No heart attack. No chest pain. RESPIRATORY: No shortness of breath or pneumonia. History of lung cancer. GASTROINTESTINAL: No reports of recent blood in stools. History of pancreatic cancer status post Whipple. History of diverticulitis with colon resection. NEURO: No reports of stroke or seizure disorders. PSYCH: No depression or suicidal ideation HEMATOLOGIC: No easy bruising or bleeding LYMPHATIC: The patient denies any lumps and bumps around the neck. GENITOURINARY: Denies any blood in urine or increased urinary frequency. MUSCULOSKELETAL: Has back pain, stiffness or joint arthritis. SKIN: No skin cancer or rash. PHYSICAL EXAM: VITAL SIGNS: Currently stable. GENERAL: Well-developed in no acute distress. HEENT: No sclera icterus. Extraocular movements grossly intact. Moist buccal mucosa. Head is atraumatic, normocephalic. Hears conversational speech. No nasal drainage. NECK: Supple without lymphadenopathy. CHEST: Non-labored respirations and equal bilateral excursions. CARDIOVASCULAR: Regular rate with regular rhythm. Palpable 2+ radial pulses. ABDOMEN: Soft. Nondistended. No peritonitis. MUSCULOSKELETAL: No clubbing, cyanosis or edema. NEUROLOGIC: No focal or lateralizing signs. Cranial nerves II through XII grossly intact. PSYCH: Appropriate affect. Alert and oriented to person, place and time. SKIN: Well perfused. Good skin turgor. LABS: Reviewed STUDIES: CT chest also personally reviewed without lung mass identified. Residual diverticulosis along splenic fracture identified ASSESSMENT: 1. History of COPD exacerbation 2. History of pancreatic cancer status post Whipple procedure PLAN: 1. No surgical intervention needed. 2. He will follow up with his pancreatic surgeon in [place] 1 month. 3. Diet as tolerated Thank you for this kind consultation. Past Medical History Past Medical History: Cancer, Hyperlipidemia Additional Past Medical History / Comment(s): HX OF LUNG CA WITH 2/3 OF RIGHT LUNG REMOVED (2000), & MELANOMA SKIN CA., HX OF DIVERTICULITIS., ANEMIA. PANCREATIC CA History of Any Multi-Drug Resistant Organisms: None Reported Past Surgical History: Hernia Repair, Tonsillectomy Additional Past Surgical History / Comment(s): HEMORRHOIDS, ING HERNIA, 1/2 OF LARGE COLON REMOVED (2011), 2/3 OF RIGHT LUNG REMOVED (2000). Past Anesthesia/Blood Transfusion Reactions: No Reported Reaction Past Psychological History: No Psychological Hx Reported Smoking Status: Former smoker Past Alcohol Use History: None Reported, Rare Past Drug Use History: None Reported - Past Family History Mother Family Medical History: No Reported History Medications and Allergies Home Medications Medication Instructions Recorded Confirmed Type Cholecalciferol [Vitamin D3] 2,000 unit PO DAILY 05/13/15 06/13/18 History Fish Oil/Dha/Epa [Fish Oil 1,200 2 cap PO DAILY 05/13/15 06/13/18 History mg Fish Oil] Multivitamin/Iron/Folic Acid 1 tab PO DAILY 05/07/17 06/13/18 History [Centrum Complete Multivit Tab] Aspirin 81 mg PO DAILY 06/13/18 06/13/18 History Allergies Allergy/AdvReac Type Severity Reaction Status Date / Time levofloxacin AdvReac Unknown UNABLE TO Verified 06/13/18 17:31 SLEEP Surgical - Exam Vital Signs Temp Pulse Resp BP Pulse Ox 100.5 F H 105 H 24 164/78 92 L 06/13/18 16:01 06/13/18 16:01 06/13/18 16:01 06/13/18 16:01 06/13/18 16:01 Results - Labs 06/15/18 11:41 06/15/18 07:10 Abnormal Lab Results - Last 24 Hours (Table) 06/15/18 06/15/1818 Range/Units 07:10 07:10 11:41 RBC 2.71 L 2.71 L (4.30-5.90) m/uL Hgb 7.4 L D 7.6 L (13.0-17.5) gm/dL Hct 23.7 L 23.7 L (39.0-53.0) % RDW 16.5 H 16.4 H (11.5-15.5) % Lymphocytes # 0.6 L (1.0-4.8) k/uL Chloride 110 H (98-107) mmol/L Calcium 8.0 L (8.4-10.2) mg/dL Microbiology - Last 24 Hours (Table) 06/14/18 11:50 Gram Stain - Preliminary Sputum 06/13/18 17:40 Blood Culture - Preliminary Blood No Growth after 24 hours Diabetes panel 06/15/18 Range/Units 07:10 Sodium 139 (137-145) mmol/L Potassium 3.9 (3.5-5.1) mmol/L Chloride 110 H (98-107) mmol/L Carbon Dioxide 23 (22-30) mmol/L BUN 19 (9-20) mg/dL Creatinine 0.89 (0.66-1.25) mg/dL Glucose 92 (74-99) mg/dL Calcium 8.0 L (8.4-10.2) mg/dL Calcium panel 06/15/18 Range/Units 07:10 Calcium 8.0 L (8.4-10.2) mg/dL Pituitary panel 06/15/18 Range/Units 07:10 Sodium 139 (137-145) mmol/L Potassium 3.9 (3.5-5.1) mmol/L Chloride 110 H (98-107) mmol/L Carbon Dioxide 23 (22-30) mmol/L BUN 19 (9-20) mg/dL Creatinine 0.89 (0.66-1.25) mg/dL Glucose 92 (74-99) mg/dL Calcium 8.0 L (8.4-10.2) mg/dL Adrenal panel 06/15/18 Range/Units 07:10 Sodium 139 (137-145) mmol/L Potassium 3.9 (3.5-5.1) mmol/L Chloride 110 H (98-107) mmol/L Carbon Dioxide 23 (22-30) mmol/L BUN 19 (9-20) mg/dL Creatinine 0.89 (0.66-1.25) mg/dL Glucose 92 (74-99) mg/dL Calcium 8.0 L (8.4-10.2) mg/dL Assessment and Plan (1) H/O pancreatic cancer Current Visit: Yes Status: Acute Code(s): Z85.07 - PERSONAL HISTORY OF MALIGNANT NEOPLASM OF PANCREAS SNOMED Code(s): 98049415204744 (2) History of lung cancer Current Visit: Yes Status: Acute Code(s): Z85.118 - PERSONAL HISTORY OF MALIGNANT NEOPLASM OF BRONCHUS AND LUNG SNOMED Code(s): 050322000 (3) Community acquired pneumonia Current Visit: Yes Status: Acute Code(s): J18.9 - PNEUMONIA, UNSPECIFIED ORGANISM SNOMED Code(s): 881436764
--- NOTE | 2018-06-15 13:46 | P.CRDCN ---
History of Present Illness Consult date: 06/15/18 Reason for Consult (text): Abnormal EKG History of present illness: This is a 72-year-old male with extensive oncology history of stage I lung cancer status post resection of two thirds of his right lung, melanoma, pancreatic cancer status post chemoradiation and Whipple procedure was done in August 2017 in [place]. Patient has been very active and goes to the gym and walks on the treadmill 5-67 miles per hour daily as well as uses a bike and weights. He states he has been doing this for 8 weeks straight every day. On Sunday all of a sudden he developed generalized weakness and shortness of breath as well as fever and cough. He continued to worsen on Sunday and Sunday and saw his physician in the office on Sunday and return on was subsequently sent into [facility] emergency center for evaluation. He has been admitted to the [facility] floor and pulmonary medicine is following for bilateral pneumonia. He has also been seen by oncology with plan for outpatient follow-up after discharge. Dr. Redman is covering for Dr. Allan with no plan for any surgical intervention at this time. Patient states that since his admission, fever chills and shortness of breath are improved. He denies any nausea, vomiting or diarrhea. He does have some generalized weakness. Patient was found to have nonspecific ST changes. He denies having any heart catheterization or echocardiogram in the past. He states his blood pressure is always in the good range and has never been on medication for hypertension. He did have a stress test a few years ago and this was normal. EKG reveals sinus mechanism with nonspecific ST changes. Echocardiogram reveals EF of 55-60%, mild aortic valve sclerosis, mild mitral regurgitation, moderate to severe tricuspid regurgitation Chest x-ray reveals COPD and fibrosis. CTA reveals no evidence of pulmonary embolism. Patchy infiltrate and atelectasis at the posterior lung bases. Pulmonary infiltrates are new compared to CT of 03/19. Repeat chest x-ray shows bilateral basilar pneumonia. Laboratory data review: WBC 7.4, hemoglobin 7.6, platelets 168, sodium 139, potassium 3.9, creatinine 0.89, cardiac enzymes 0.013 and 0.012. Current cardiac medications: None. At the time of my exam: CONSTITUTIONAL: Reports fever. Reports chills. EYES: Denies blurred vision. Denies vision changes. Denies eye pain. EARS, NOSE, MOUTH & THROAT: Denies headache. Denies sore throat. Denies ear pain. CARDIOVASCULAR: Denies chest pain. Reports shortness of breath. Denies orthopnea. Denies PND. Denies palpitations. RESPIRATORY: Complains of cough. GASTROINTESTINAL: Denies abdominal pain. Denies diarrhea. Denies constipation. Denies nausea. Denies vomiting. MUSCULOSKELETAL: Denies myalgias. Complains of pain to the left elbow. INTEGUMENTARY: Denies pruitis. Denies rash. NEUROLOGIC: Denies numbness. Denies tingling. Denies weakness. PSYCHIATRIC: Denies anxiety. Denies depression. ENDOCRINE: Denies fatigue. Denies weight change. Denies polydipsia. Denies polyurina. GENITOURINARY: Denies burning, hematuria or urgency with micturation. HEMATOLOGIC: Denies history of anemia. Denies bleeding. Blood pressure [ ], heart rate [ ], afebrile, maintaining oxygen saturation on room air. GENERAL: This is a [ ] in no apparent distress at the time of my examination. HEENT: Head is atraumatic, normocephalic. Pupils are equal, round. Sclerae anicteric. Conjunctivae are clear. Mucous membranes of the mouth are moist. Neck is supple. There is no jugular venous distention. No carotid bruit is heard. LUNGS: Diminished bilaterally but otherwise clear to auscultation. No chest wall tenderness is noted on palpation or with deep breathing. HEART: Regular rate and rhythm without murmurs, rubs or gallops. S1 and S2 heard. [id number] to the anterior chest wall. ABDOMEN: Soft, nontender. Bowel sounds are heard. No organomegaly noted. EXTREMITIES: No evidence of lower extremity edema and no calf tenderness noted. VASCULAR: Radial and dorsalis pedis pulses palpated, no evidence of clubbing. NEUROLOGIC: Patient is awake, alert and oriented x3. No focal neuro deficits. ASSESSMENT Nonspecific ST-T wave abnormalities Shortness of breath secondary to Bilateral pneumonia Hyperlipidemia History of right lung cancer status post lobectomy History of melanoma History of adenocarcinoma of the pancreas status post chemoradiation and Whipple procedure Anemia of chronic disease No history of coronary artery disease PLAN Echocardiogram as noted above as well as repeat troponins are negative. Plan to monitor patient and once he is over acute illness, further workup to evaluate abnormal EKG findings. Thank you kindly for this consultation. Nurse Practitioner note has been reviewed, I agree with a documented findings and plan of care. Patient was seen and examined. Past Medical History Past Medical History: Cancer, Hyperlipidemia Additional Past Medical History / Comment(s): HX OF LUNG CA WITH 2/3 OF RIGHT LUNG REMOVED (2000), & MELANOMA SKIN CA., HX OF DIVERTICULITIS., ANEMIA. PANCREATIC CA History of Any Multi-Drug Resistant Organisms: None Reported Past Surgical History: Hernia Repair, Tonsillectomy Additional Past Surgical History / Comment(s): HEMORRHOIDS, ING HERNIA, 1/2 OF LARGE COLON REMOVED (2011), 2/3 OF RIGHT LUNG REMOVED (2000). Past Anesthesia/Blood Transfusion Reactions: No Reported Reaction Past Psychological History: No Psychological Hx Reported Smoking Status: Former smoker Past Alcohol Use History: None Reported, Rare Past Drug Use History: None Reported - Past Family History Mother Family Medical History: No Reported History Medications and Allergies Home Medications Medication Instructions Recorded Confirmed Type Cholecalciferol [Vitamin D3] 2,000 unit PO DAILY 05/13/15 06/13/18 History Fish Oil/Dha/Epa [Fish Oil 1,200 2 cap PO DAILY 05/13/15 06/13/18 History mg Fish Oil] Multivitamin/Iron/Folic Acid 1 tab PO DAILY 05/07/17 06/13/18 History [Centrum Complete Multivit Tab] Aspirin 81 mg PO DAILY 06/13/18 06/13/18 History Allergies Allergy/AdvReac Type Severity Reaction Status Date / Time levofloxacin AdvReac Unknown UNABLE TO Verified 06/13/18 17:31 SLEEP Physical Exam Vitals: Vital Signs Temp Pulse Pulse Resp BP Pulse Ox 06/15/18 11:18 80 06/15/18 07:39 88 06/15/18 07:23 84 06/15/18 04:33 97.8 F 68 16 118/59 94 L 06/15/18 01:26 98.6 F 06/14/18 23:39 103 H 18 06/14/18 23:17 100.1 F H 06/14/18 20:36 101.6 F H 103 H 18 165/72 93 L 06/14/18 20:09 76 06/14/18 19:55 75 12/14/18 18:45 94 L 06/14/18 16:27 76 06/14/18 16:19 99 06/14/18 16:18 72 06/14/18 13:23 97.9 F 77 22 115/71 96 Intake and Output 06/14/18 06/15/18 06/15/18 22:59 06:59 14:59 Intake Total 1270 1020 Balance 1270 1020 Intake: Intake, IV Titration 850 600 Amount Azithromycin 500 mg In 250 Sodium Chloride 0.9% 250 ml @ 250 mls/hr IVPB DAILY [facility] Rx#:[id number] Piperacillin-Tazobactam 3 100 .375 gm In Sodium Chloride 0.9% 100 ml @ 25 mls/hr IVPB Q8HR [facility] Rx# :[id number] Sodium Chloride 0.9% 1, 500 600 000 ml @ 100 mls/hr IV . Q10H [facility] Rx#:[id number] Oral 420 420 Other: Voiding Method Toilet Toilet # Voids 2 2 # Bowel Movements 1 Weight 77.564 kg Results 06/15/18 11:41 06/15/18 07:10 CBC 06/15/18 06/15/18 Range/Units 07:10 11:41 WBC 6.5 7.4 (3.8-10.6) k/uL RBC 2.71 L 2.71 L (4.30-5.90) m/uL Hgb 7.4 L D 7.6 L (13.0-17.5) gm/dL Hct 23.7 L 23.7 L (39.0-53.0) % Plt Count 168 168 (150-450) k/uL Comprehensive Metabolic Panel 06/15/18 Range/Units 07:10 Sodium 139 (137-145) mmol/L Potassium 3.9 (3.5-5.1) mmol/L Chloride 110 H (98-107) mmol/L Carbon Dioxide 23 (22-30) mmol/L BUN 19 (9-20) mg/dL Creatinine 0.89 (0.66-1.25) mg/dL Glucose 92 (74-99) mg/dL Calcium 8.0 L (8.4-10.2) mg/dL Current Medications Generic Name Dose Route Start Last Admin Trade Name Freq PRN Reason Stop Dose Admin Acetaminophen 650 mg 06/14/18 20:47 06/14/18 21:38 Tylenol Tab PO 650 mg Q6HR PRN Administration Mild Pain or Fever > 100.5 Albuterol/Ipratropium 3 ml 06/13/18 20:00 06/15/18 11:18 Duoneb 0.5 Mg-3 Mg/3 Ml Soln INHALATION 3 ml RT-QID [facility] Administration Albuterol/Ipratropium 3 ml 06/14/18 01:00 Duoneb 0.5 Mg-3 Mg/3 Ml Soln INHALATION RT-Q2H PRN Shortness Of Breath Or Wheezing Alprazolam 0.25 mg 06/14/18 20:47 Xanax PO Q6HR PRN Anxiety Aspirin 81 mg 06/14/18 11:15 06/15/18 09:51 Aspirin PO 81 mg DAILY [facility] Administration Calcium Carbonate/Glycine 1,000 mg 06/14/18 20:47 Tums PO Q4HR PRN Dyspepsia Enoxaparin Sodium 40 mg 06/14/18 09:00 06/15/18 09:51 Lovenox SQ 40 mg DAILY [facility] Administration Sodium Chloride 1,000 mls @ 100 mls/hr 06/13/18 18:45 06/14/18 23:38 Saline 0.9% IV Not Given .Q10H [facility] Azithromycin 500 mg/ Sodium 250 mls @ 250 mls/hr 06/14/18 09:00 06/15/18 08: 28 Chloride IVPB 250 mls/hr DAILY [facility] Administration Piperacillin Sod/Tazobactam 100 mls @ 25 mls/hr 06/15/18 00:00 06/15/18 09:52 Sod 3.375 gm/ Sodium Chloride IVPB 25 mls/hr Q8HR [facility] Administration Lactulose 20 gm 06/14/18 20:47 Cephulac PO DAILY PRN Constipation Magnesium Hydroxide 2,400 mg 06/14/18 20:47 Milk Of Magnesia PO DAILY PRN Constipation Melatonin 3 mg 06/14/18 20:47 Melatonin PO HS PRN Insomnia Miscellaneous Information 1 each 06/13/18 18:45 Pneumonia Protocol Utilized PO ONCE PRN Per Protocol Multivitamins 1 each 06/14/18 12:00 06/14/18 12:43 Theragran PO 1 each 1200 [facility] Administration Naloxone HCl 0.2 mg 06/14/18 20:47 Narcan IV Q2M PRN Opioid Reversal Ondansetron HCl 4 mg 06/14/18 20:47 Zofran IVP Q8HR PRN Nausea And Vomiting Intake and Output 06/14/18 06/15/18 06/15/18 22:59 06:59 14:59 Intake Total 1270 1020 Balance 1270 1020 Intake: Intake, IV Titration 850 600 Amount Azithromycin 500 mg In 250 Sodium Chloride 0.9% 250 ml @ 250 mls/hr IVPB DAILY [facility] Rx#:[id number] Piperacillin-Tazobactam 3 100 .375 gm In Sodium Chloride 0.9% 100 ml @ 25 mls/hr IVPB Q8HR [facility] Rx# :[id number] Sodium Chloride 0.9% 1, 500 600 000 ml @ 100 mls/hr IV . Q10H [facility] Rx#:[id number] Oral 420 420 Other: Voiding Method Toilet Toilet # Voids 2 2 # Bowel Movements 1 Weight 77.564 kg 06/15/18 11:41 06/15/18 07:10
[2018-06-15] MEDS: SODIUM CHLORIDE 0.9% 1,000 ML IV SCH (15:37)
[2018-06-15] MEDS: guaiFENesin 600 MG TABLET.ER PO SCH ×2 (16:50→20:43)
--- NOTE | 2018-06-15 20:02 | PN ---
PROGRESS NOTE DATE OF SERVICE: 06/15/2018. PRESENTING COMPLAINT: Cough, fever. INTERVAL HISTORY: The patient presents with bilateral pneumonia. Cough and congestion is a bit better. Appetite is getting better. Fevers have come down. Did have a 2-D echocardiogram showing significant TR. Also, spoke to Dr. Aranda last night. The patient did have chemo radiation treatment and a Whipple's procedure in [place]. Stable from that standpoint. The patient is up in the hallway today. The patient's and family at the bedside. REVIEW OF SYSTEMS: Done for constitutional, cardiovascular, GI, pulmonary; relevant findings as above. CURRENT MEDICATIONS: Reviewed that include DuoNeb, azithromycin and IV Zosyn. PHYSICAL EXAMINATION: T-max 101.6 last night, afebrile this morning; pulse 76, respirations 16, blood pressure 147/78, pulse ox 96% on room. GENERAL APPEARANCE: Sitting up in bed, appears better. EYES: Pupils equal. Conjunctivae normal. NECK: JVD not raised. Mass not palpable. Respiratory effort increased. LUNGS: Improved air entry. CARDIOVASCULAR: First and second sounds. No edema. ABDOMEN: Soft, nontender. Liver and spleen not palpable. PSYCHIATRY: Alert and oriented x3. Mood and affect normal. INVESTIGATIONS: White count 7.4, hemoglobin 7.6. Troponin negative. 2D echo shows preserved LV function. Moderate to severe tricuspid regurgitation. ASSESSMENT: 1. Bilateral pneumonia, could be viral pneumonitis; cannot rule out a bacterial component causing sepsis present on admission with clinical response. 2. Abnormal EKG with a normal 2D echo for outpatient workup with Cardiology. 3. Hyperlipidemia. 4. Benign prostatic hypertrophy. 5. History of lung cancer with right two-thirds lobectomy. 6. Pancreatic cancer, treated with Whipple's procedure and chemoradiation, does follow up in [place]. 7. Hyponatremia, likely hypo-osmolar. 8. Normocytic anemia, likely chronic from underlying history of malignancy. PLAN: Overall doing better. Continue current medication and treatment plan. Encourage to ambulate. Care was discussed with the patient and family. Follow. MMODL / IJN: [id number] /
[2018-06-16] MEDS: PIPERACILLIN-TAZOBACTAM 3.375 GM in SODIUM CHLORIDE 0.9% 100 ML IVPB SCH ×4 (00:20→23:46)
[2018-06-16 07:55] LABS: Anisocytosis Slight; Basophils % (A) 1 %; Eosinophils # (A) 0.1 k/uL (0-0.7); Eosinophils % (A) 3 %; HGB 7.3 gm/dL (13.0-17.5); Lymphocytes # (A) 0.7 k/uL (1.0-4.8); Lymphocytes % (A) 14 %; MCH 27.7 pg (25.0-35.0); MCHC 31.6 g/dL (31.0-37.0); MCV 87.4 fL (80.0-100.0); Mean Platelet Volume 6.8; Monocytes # (A) 0.3 k/uL (0-1.0); Monocytes % (A) 6 %; Neutrophils # (A) 3.7 k/uL (1.3-7.7); Neutrophils % (A) 74 %; Platelet Count 199 k/uL (150-450); RBC 2.63 m/uL (4.30-5.90); RDW 16.3 % (11.5-15.5); WBC 4.9 k/uL (3.8-10.6)
[2018-06-16 08:23] LABS: Anion Gap 6 mmol/L; Blood Urea Nitrogen 13 mg/dL (9-20); Calcium 8.1 mg/dL (8.4-10.2); Carbon Dioxide 23 mmol/L (22-30); Chloride 110 mmol/L (98-107); Glucose 86 mg/dL (74-99); Potassium 3.6 mmol/L (3.5-5.1); Sodium 139 mmol/L (137-145)
[2018-06-16] MEDS: IPRATROPIUM-ALBUTEROL 3 ML NEB INHALATION SCH ×4 (08:27→20:18)
[2018-06-16] MEDS: ASPIRIN 81 MG PO SCH (08:36)
[2018-06-16] MEDS: guaiFENesin 600 MG TABLET.ER PO SCH ×2 (08:36→20:58)
[2018-06-16] MEDS: ENOXAPARIN 40 MG/0.4 ML SYRINGE SQ SCH (08:36)
[2018-06-16] MEDS: AZITHROMYCIN 500 MG in SODIUM CHLORIDE 0.9% 250 ML IVPB SCH (08:36)
--- NOTE | 2018-06-16 14:58 | P.PN ---
Subjective Progress Note Date: 06/16/18 Principal diagnosis: Acute bilateral community-acquired pneumonia This is a very pleasant 72-year-old gentleman who follows with Dr. Mendoza as his primary care physician. He has a history of lung cancer status post lobectomy 2 on the right side [address] Yung. No chemo or radiation was required. He also has a history of melanoma on his back between the shoulder blades 10 years ago that was surgically resected. No chemo or radiation treatments done. Then in May 2017 he was diagnosed with adenocarcinoma of the pancreas. He had undergone 25 radiation treatments and chemotherapy with subsequent Whipple procedure in August 2017 performed in [place]. Following the surgery he did developed an abdominal infection was back in [place] for 3 weeks. Since that time however he had been doing quite well. He exercises for an hour 6 or 7 days a week. He is only on aspirin, multivitamin, fish oil in the outpatient setting. Approximate 4 days however he developed increasing shortness of breath, cough and congestion and presented here to the emergency room on 06/13/[address] angiogram ruled out pulmonary embolism there was noted patchy infiltrate and atelectasis in the posterior lung bases that was new compared to his last CT in March 2018. The pneumonia was considered and he was admitted for the same. He is seen today in consultation on the oncology unit here he is awake and alert in no acute distress. He is maintaining good O2 saturations in the 90s on room air. He did have a T-max of 101.6. He is currently afebrile. Hemodynamically stable. Blood culture reveals no growth. Sputum culture is pending. No leukocytosis. Hemoglobin 7.4. Creatinine 0.89. ProBNP 534. Influenza screen negative. He has been initiated on bronchodilators, Zosyn and azithromycin. Reevaluated today on 06/16/2018, slight improvement, however he continues to cough and wheeze. Has some dyspnea on exertion. Remains on oxygen, remains on bronchodilators, and on antibiotics as ordered/Zosyn and Zithromax. CBC showed WBC count of 4.9 hemoglobin is low at 7.3. Elective lites are normal renal profile is normal. Influenza screen was noted to be negative. Chest x-ray on admission was reviewed and clearly showed bibasilar infiltrates. Objective - Vital Signs Vital signs: Vital Signs Temp 97.9 F 06/16/18 12:57 Pulse 78 06/16/18 12:57 Resp 16 06/16/18 12:57 BP 137/73 06/16/18 12:57 Pulse Ox 95 06/16/18 12:57 Intake & Output 06/15/18 06/16/18 06/16/18 18:59 06:59 18:59 Intake Total 1570 620 350 Balance 1570 620 350 Intake: Intake, IV Titration 1150 200 350 Amount Azithromycin 500 mg In 250 250 Sodium Chloride 0.9% 250 ml @ 250 mls/hr IVPB DAILY [facility] Rx#:[id number] Piperacillin-Tazobactam 3 100 200 100 .375 gm In Sodium Chloride 0.9% 100 ml @ 25 mls/hr IVPB Q8HR [facility] Rx# :[id number] Sodium Chloride 0.9% 1, 800 0 000 ml @ 100 mls/hr IV . Q10H [facility] Rx#:[id number] Oral 420 420 Other: Voiding Method Toilet Toilet # Voids 2 2 - Exam Physical Exam: Revealed a 72-year-old white male in no distress, very pleasant, on 2 L nasal cannula. Head: Atraumatic, normocephalic. HEENT:[Neck is supple.] [No neck masses.] [No thyromegaly.] [No JVD.] Chest: Bibasilar crackles, rhonchi, wheezes noted bilaterally more so on forced expiratory maneuver. Cardiac Exam: [Normal S1 and S2, no S3 gallop, no murmur.] Abdomen: [Soft, nontender, no megaly, no rebound, no guarding, normal bowel sounds.] Extremities: [No clubbing, no edema, no cyanosis.] Neurological Exam: [No focal neurologic deficit.] Psychiatric: Normal mood, affect and mental status examination. Skin: No rashes. Surgical scars were noted in the chest and abdomen. - Labs CBC & Chem 7: 06/16/18 07:11 06/16/18 07:11 Labs: Abnormal Lab Results - Last 24 Hours (Table) 06/16/18 06/16/18 Range/Units 07:11 07:11 RBC 2.63 L (4.30-5.90) m/uL Hgb 7.3 L (13.0-17.5) gm/dL Hct 23.0 L (39.0-53.0) % RDW 16.3 H (11.5-15.5) % Lymphocytes # 0.7 L (1.0-4.8) k/uL Chloride 110 H (98-107) mmol/L Calcium 8.1 L (8.4-10.2) mg/dL Microbiology - Last 24 Hours (Table) 06/14/18 11:50 Gram Stain - Final Sputum Sputum Culture - Final 06/14/18 21:01 Blood Culture - Preliminary Blood No Growth after 24 hours 06/15/18 11:23 Gram Stain - Preliminary Sputum Sputum Culture - Preliminary 06/13/18 17:40 Blood Culture - Preliminary Blood No Growth after 48 hours Assessment and Plan Assessment: #1 Dyspnea secondary to bilateral pneumonia, suspect community-acquired. #2 Febrile illness secondary to above, improving. #3 History of right lung cancer status post lobectomy 17 years ago. No chemo or radiation at that time. #4 History of melanoma on the back status post resection. #5 Adenocarcinoma of the pancreas, status post radiation chemotherapy. Status post Whipple procedure in August 2017. #6 Hyperlipidemia. #[address] and T wave abnormalities. #8 Anemia. Likely chronic, outpatient investigation of his anemia will be recommended. This will be done by his primary care physician. Recommendation: Continue oxygen, bronchodilators, antibiotics, steroids, cultures are still pending, continue DVT prophylaxis, increase activity as tolerated, repeat chest x-ray in a.m. Last resort would be to consider bronchoscopy, however at this point I believe the patient may not need to be bronchoscoped. Time with Patient: Less than 30
[2018-06-16] MEDS: MULTIVITAMINS, THERA 1 EACH TAB PO SCH (17:22)
--- NOTE | 2018-06-16 22:02 | PN ---
PROGRESS NOTE DATE OF SERVICE: 06/16/2018. PRESENTING COMPLAINT: Cough. INTERVAL HISTORY: Patient admitted with bilateral pneumonia. Bringing up some sputum. Breathing is better. Has been out of bed. Appetite is getting better. REVIEW OF SYSTEMS: Done for constitutional, cardiovascular, GI, pulmonary; relevant findings as above. CURRENT MEDICATIONS: Reviewed, including IV azithromycin, IV Zosyn, bronchodilators. PHYSICAL EXAMINATION: On examination, afebrile, pulse 78, respirations 16, blood pressure 137/73, pulse 95 percent on room air. GENERAL: Sitting up, more comfortable. EYES: Pupils equal. Conjunctivae normal. NECK: JVD not raised. Mass not palpable. Respiratory effort normal. LUNGS: Improved air entry. CARDIOVASCULAR: First and second sounds normal. No edema. ABDOMEN: Soft, nontender. Liver and spleen not palpable. PSYCHIATRY: Alert and oriented x3. Mood and affect normal. INVESTIGATIONS: White count 4.9, hemoglobin 7.3, potassium 3.6. ASSESSMENT: 1. Bilateral pneumonia could be viral pneumonitis, bacterial component cannot be ruled out, causing sepsis on admission with clinical improvement. 2. Abnormal EKG with normal 2D echo for outpatient workup with Cardiology. 3. Hyperlipidemia. 4. Benign prostatic hypertrophy. 5. History of lung cancer, right 2/3 lobectomy. 6. Pancreatic cancer treated with Whipple's procedure and chemoradiation, does follow up in [place]. 7. Hyponatremia, likely hypo-osmolar. 8. Normocytic anemia, likely chronic from underlying history of malignancy. PLAN: Overall clinically responding. Continue medication and treatment plan. Encouraged to be walking. Repeat a chest x-ray tomorrow. Clinically patient is doing better. MMODL / IJN: [id number] /
--- NOTE | 2018-06-17 07:34 | XR ---
EXAMINATION TYPE: XR chest 2V DATE OF EXAM: 06/17/2018 COMPARISON: 06/14/2018 HISTORY: 72-year-old male follow-up pneumonia TECHNIQUE: Frontal and lateral views FINDINGS: Right anterior chest wall injection port with subclavian approach and catheter tip at the lower SVC l evel. Heart normal size. Hyperinflation with relative upper lung lucencies. Some patchy bibasilar den sities persist but show some improvement from prior. Some linear densities at the right apex are unch anged, likely relating to scarring and surgical material. Large appearance to the central main pulmon olya arteries. IMPRESSION: 1. COPD with pulmonary arterial hypertension and scarring and surgical change at the right apex. 2. Mild patchy bibasilar atelectasis/infiltrate shows some improvement.
[2018-06-17] MEDS: AZITHROMYCIN 500 MG in SODIUM CHLORIDE 0.9% 250 ML IVPB SCH (07:37)
[2018-06-17] MEDS: ENOXAPARIN 40 MG/0.4 ML SYRINGE SQ SCH (07:37)
[2018-06-17] MEDS: guaiFENesin 600 MG TABLET.ER PO SCH ×2 (07:37→20:28)
[2018-06-17] MEDS: ASPIRIN 81 MG PO SCH (07:37)
[2018-06-17 08:03] LABS: Anion Gap 7 mmol/L; Blood Urea Nitrogen 13 mg/dL (9-20); Calcium 8.8 mg/dL (8.4-10.2); Carbon Dioxide 25 mmol/L (22-30); Chloride 107 mmol/L (98-107); Glucose 89 mg/dL (74-99); Potassium 3.9 mmol/L (3.5-5.1); Sodium 139 mmol/L (137-145)
[2018-06-17] MEDS: IPRATROPIUM-ALBUTEROL 3 ML NEB INHALATION SCH ×4 (08:14→20:24)
[2018-06-17] MEDS: PIPERACILLIN-TAZOBACTAM 3.375 GM in SODIUM CHLORIDE 0.9% 100 ML IVPB SCH ×3 (08:48→23:59)
[2018-06-17] MEDS: DOCUSATE 100 MG CAP PO SCH ×2 (08:51→20:28)
[2018-06-17] MEDS: MULTIVITAMINS, THERA 1 EACH TAB PO SCH (12:29)
--- NOTE | 2018-06-17 16:52 | PN ---
PROGRESS NOTE This is a 72-year-old male who was admitted with a diagnosis of possible bibasilar pneumonia. He is feeling much better. He is hoping to stay one more day in the hospital. His chest x-ray today does show improvement. He has a very interesting history of having had lung cancer many years back. He had a right middle and right upper lobectomy done by Dr. Yung. Obviously [id number] lung cancer. The patient also has a previous history of melanoma resection on his back and also had recent Whipple procedure for adenocarcinoma of the pancreas. He is status post radiation and chemotherapy. In addition, he has a history of hyperlipidemia and also has a history of anemia. The patient is actually looking quite well for all his major medical problems, including 3 different cancers. Anyway, the patient is feeling better. He still feels like he has got some chest congestion, some mild phlegm production. Mild shortness of breath. Chest x-ray again shows significant improvement, in my opinion, and the patient could likely be discharged home tomorrow. Current vital signs are reviewed. He is afebrile at 97.2, heart rate 72, respiratory rate 16, blood pressure 128/63 with mean of 84, and room-air saturation of 95%. Appears in no acute distress. HEENT examination is grossly unremarkable. He is not requiring any supplemental oxygen. Mucous membranes are moist. Neck is supple. Full range of motion. No adenopathy or thyromegaly. Neck veins are flat. Cardiovascular examination reveals regular rhythm and rate. S1, S2 normal. No S3, S4 or murmur. Lungs reveal a few scattered rhonchi. No wheezes or crackles. Breath sounds are equal bilaterally. Abdomen is soft. Extremities are intact. No cyanosis, clubbing or edema. Skin without rash. Neurologic examination is brief but nonfocal. Chest x-ray shows improvement. Laboratory data from today include an electrolyte profile, all of which is normal. Microbiologic studies are all thus far negative. Medications are reviewed. For antibiotics, the patient is on Zosyn and Zithromax. The patient is also on updrafts with DuoNeb. The rest of the medications look appropriate. ASSESSMENT: 1. Bibasilar pneumonia, likely community-acquired. 2. History of right lung cancer, status post lobectomy many years ago, including right upper lobectomy and right middle lobectomy for [id number] lung cancer. The patient had early-stage disease and did not require chemo or radiation at that time. 3. History of melanoma, status post resection. 4. Adenocarcinoma of the pancreas, status post Whipple's procedure in August 2017 and radiation/chemotherapy. 5. Hyperlipidemia. 6. Nonspecific ST-T wave changes. 7. Chronic anemia. PLAN: The patient is doing well. He is on good antibiotics and updrafts. We will continue to follow. Chest x-ray is improved. Likely discharge home in the next day or so. MMODL / IJN: [id number] /
--- NOTE | 2018-06-17 19:43 | PN ---
PROGRESS NOTE DATE OF SERVICE: 06/17/2018. PRESENTING COMPLAINT: Cough. INTERVAL HISTORY: This patient was admitted with bilateral pneumonia. Still bringing up sputum, though breathing is much improved. Has been up in the hallway. Appetite is getting better. Had a bowel movement. REVIEW OF SYSTEMS: Done for constitutional, cardiovascular, GI, pulmonary; relevant findings as above. Sitting up in a chair. CURRENT MEDICATIONS: Reviewed. They include Zithromax, IV Zosyn, DuoNeb. PHYSICAL EXAMINATION: Afebrile. Pulse 73, respiration 18, blood pressure 128/63, pulse ox 94% on room air. GENERAL APPEARANCE: Sitting up in a chair. Comfortable. EYES: Pupils equal. Conjunctivae normal. NECK: JVD not raised. Mass not palpable. RESPIRATORY: Effort normal. LUNGS: Improved air entry. Minimal crackles, if any. CARDIOVASCULAR: First and second sounds normal. No edema. ABDOMEN: Soft, non-tender. Liver and spleen not palpable. PSYCHIATRY: Alert and oriented x3. Mood and affect normal. INVESTIGATIONS: Potassium 3.9. BUN and creatinine are normal. ASSESSMENT: 1. Bilateral pneumonia; could be viral pneumonitis, bacterial component cannot be ruled out; causing sepsis on admission, with clinical response. 2. Abnormal EKG with normal two-dimensional echocardiogram for outpatient workup with Cardiology. 3. Hyperlipidemia. 4. Benign prostatic hypertrophy. 5. History of lung cancer with right two-thirds lobectomy. 6. Pancreatic cancer, treated with Whipple procedure and chemoradiation. Does follow up with [place]. 7. Hyponatremia, likely hypo-osmolar. 8. Normocytic anemia, likely chronic, from underlying history of malignancy. PLAN: Care was discussed with the patient. Continue current medication and treatment plan. Chest x-ray was reviewed. Some infiltrates are present. MMODL / IJN: [id number] /
[2018-06-18] MEDS: IPRATROPIUM-ALBUTEROL 3 ML NEB INHALATION SCH ×4 (08:29→19:25)
[2018-06-18] MEDS: PIPERACILLIN-TAZOBACTAM 3.375 GM in SODIUM CHLORIDE 0.9% 100 ML IVPB SCH ×2 (08:51→16:58)
[2018-06-18] MEDS: AZITHROMYCIN 500 MG TAB PO SCH (08:51)
[2018-06-18] MEDS: guaiFENesin 600 MG TABLET.ER PO SCH ×2 (08:51→21:26)
[2018-06-18] MEDS: ENOXAPARIN 40 MG/0.4 ML SYRINGE SQ SCH (08:51)
[2018-06-18] MEDS: ASPIRIN 81 MG PO SCH (08:51)
[2018-06-18] MEDS: DOCUSATE 100 MG CAP PO SCH ×2 (08:51→21:26)
--- NOTE | 2018-06-18 11:37 | P.PN ---
Subjective Progress Note Date: 06/18/18 Principal diagnosis: Pneumonia and Anemia Hemoglobin has been running in 7s, will recheck CBC today. Patient and concerned as he has been in hospital 5 days and does not appear to have improved. He runs a baseline hgb 9-10, although this was post-operatively and when he had known active cancer. They are asking for consultation with his primary manager cost. I have contacted him to discuss and review most recent labs prior to admission Objective - Vital Signs Vital signs: Vital Signs Temp 98.1 F 06/18/18 05:00 Pulse 72 06/18/18 08:40 Resp 16 06/18/18 05:00 BP 149/89 06/18/18 05:00 Pulse Ox 94 L 06/18/18 05:00 Intake & Output 06/17/18 06/18/18 06/18/18 18:59 06:59 18:59 Intake Total 560 Balance 560 Weight 77.564 kg Intake: Intake, IV Titration 200 Amount Piperacillin-Tazobactam 3 200 .375 gm In Sodium Chloride 0.9% 100 ml @ 25 mls/hr IVPB Q8HR [facility] Rx# :[id number] Oral 360 Other: Voiding Method Toilet # Voids 2 1 - Exam Constitutional General appearance: cooperative, no acute distress - EENT Eyes: EOMI, dentition normal ENT: NA/AT, normal oropharynx - Neck Neck: normal ROM - Cardiovascular Rhythm: regular Heart sounds: normal: S1, S2 - Gastrointestinal General gastrointestinal: normal bowel sounds, soft - Integumentary Integumentary: normal - Neurologic Neurologic: CNII-XII intact - Musculoskeletal Musculoskeletal: gait normal, generalized weakness, strength equal bilaterally - Psychiatric Psychiatric: A&O x's 3, appropriate affect, intact judgment & insight - Labs CBC & Chem 7: 06/18/18 13:10 06/18/18 13:10 Labs: Microbiology - Last 24 Hours (Table) 06/15/18 11:23 Gram Stain - Final Sputum Sputum Culture - Final Corine albicans Beta Hemolytic Strep Group G 06/14/18 21:01 Blood Culture - Preliminary Blood No Growth after 72 hours 06/13/18 17:40 Blood Culture - Preliminary Blood No Growth after 96 hours Assessment and Plan Plan: Assessment and Recommendations: 1. Community Acquired Pneumonia - Per Primary Team - IV Antibiotics and supportive care 2. Recent History Stage 2 Pancreatic Adenocarcinoma - Diagnosed in May 2017, Status POst [facility]-adjuvant Chemotherapy and Radiation June (2016)-Aug (2017) - Status Post Whipple August 2017 - COmplicated infection post operatively requiring TPN and IV antibiotics - No signs of recurrence - FOllow-up with Dr. Chauhan after discharge 3. Remote history of early stage lung cancer and Melanoma both treated surgically 4. Normocytic Anemia with fast drop - Drop from 12.3 on admission to 7s - Stable in 7s - Recheck today and further work-up ordered - Will discuss with Dr. Polly Chauhan patients primary [employer] Client Solutions Analyst. Thank you for allowing us to participate in the care of this patient we will follow along with you. Megan CHAPIN
[2018-06-18] MEDS: predniSONE 10 MG TAB PO SCH (12:00)
[2018-06-18] MEDS: MULTIVITAMINS, THERA 1 EACH TAB PO SCH (12:00)
--- NOTE | 2018-06-18 13:25 | P.PN ---
Subjective Progress Note Date: 06/18/18 Principal diagnosis: Bilateral pneumonia, suspect community-acquired This is a very pleasant 72-year-old gentleman who follows with Dr. Mendoza as his primary care physician. He has a history of lung cancer status post lobectomy 2 on the right side [address] Yung. No chemo or radiation was required. He also has a history of melanoma on his back between the shoulder blades 10 years ago that was surgically resected. No chemo or radiation treatments done. Then in May 2017 he was diagnosed with adenocarcinoma of the pancreas. He had undergone 25 radiation treatments and chemotherapy with subsequent Whipple procedure in August 2017 performed in [place]. Following the surgery he did developed an abdominal infection was back in [place] for 3 weeks. Since that time however he had been doing quite well. He exercises for an hour 6 or 7 days a week. He is only on aspirin, multivitamin, fish oil in the outpatient setting. Approximate 4 days however he developed increasing shortness of breath, cough and congestion and presented here to the emergency room on 06/13/[address] angiogram ruled out pulmonary embolism there was noted patchy infiltrate and atelectasis in the posterior lung bases that was new compared to his last CT in March 2018. The pneumonia was considered and he was admitted for the same. The patient is seen today 06/18/2018 in follow-up on the regular medical floor. He is currently awake and alert in no acute distress. He is still having some loose nonproductive cough. Some wheezing. Overall he does feel better. Sputum was positive for Corine and beta-hemolytic strep group G. He is currently on Zosyn and azithromycin. He is maintaining good O2 saturations in the upper 90s on room air. He's been afebrile. Hemodynamically stable. Creatinine 1.01. Objective - Vital Signs Vital signs: Vital Signs Temp 97.6 F 06/18/18 11:55 Pulse 72 06/18/18 12:50 Resp 18 06/18/18 11:55 BP 143/80 06/18/18 11:55 Pulse Ox 97 06/18/18 11:55 Intake & Output 06/17/18 06/18/18 06/18/18 18:59 06:59 18:59 Intake Total 560 Balance 560 Weight 77.564 kg Intake: Intake, IV Titration 200 Amount Piperacillin-Tazobactam 3 200 .375 gm In Sodium Chloride 0.9% 100 ml @ 25 mls/hr IVPB Q8HR [facility] Rx# :[id number] Oral 360 Other: Voiding Method Toilet # Voids 2 1 - Exam - Constitutional General appearance: average body habitus, no acute distress. On room air. - EENT Eyes: EOMI, PERRLA ENT: hearing grossly normal Ears: bilateral: normal - Neck Neck: normal ROM Carotids: bilateral: upstroke normal Thyroid: bilateral: normal size - Respiratory Respiratory: bilateral: rales - Cardiovascular Rhythm: regular Heart sounds: normal: S1, S2 - Gastrointestinal General gastrointestinal: normal bowel sounds - Integumentary Integumentary: normal turgor - Neurologic Neurologic: CNII-XII intact - Musculoskeletal Musculoskeletal: generalized weakness - Psychiatric Psychiatric: A&O x's 3, appropriate affect, intact judgment & insight - Labs CBC & Chem 7: 06/16/18 07:11 06/18/18 06:57 Labs: Microbiology - Last 24 Hours (Table) 06/15/18 11:23 Gram Stain - Final Sputum Sputum Culture - Final Corine albicans Beta Hemolytic Strep Group G 06/14/18 21:01 Blood Culture - Preliminary Blood No Growth after 72 hours 06/13/18 17:40 Blood Culture - Preliminary Blood No Growth after 96 hours Assessment and Plan Assessment: Impression: #1 Dyspnea secondary to bilateral pneumonia, suspect community-acquired. Improved. On room air. #2 Febrile illness secondary to above, improved. #3 History of right lung cancer status post lobectomy 17 years ago. No chemo or radiation at that time. #4 History of melanoma on the back status post resection. #5 Adenocarcinoma of the pancreas, status post radiation chemotherapy. Status post Whipple procedure in August 2017. #6 Hyperlipidemia. #[address] and T wave abnormalities. #8 Anemia. Plan: The patient was seen and evaluated by Dr. Bryan. He is still somewhat bronchospastic and wheezy. We will initiate oral prednisone. Most recent chest x-ray was showing improvement in the basilar infiltrates. We will increase his activity as tolerated. We will continue to follow and make further recommendations based on his clinical status. I, the cosigning physician, performed a history & physical examination of the patient. Lungs sounds with crackles in bilateral posterior bases diminished in the right. Maintaining good O2 saturations in the 90s on room air. I discussed the assessment and plan of care with my nurse practitioner, Pati Kerns. I attest to the above consultation as dictated by her.t
[2018-06-18 13:34] LABS: Reticulocyte % 1.7 % (0.5-2.0)
[2018-06-18 13:37] LABS: Anisocytosis Slight; Basophils % (A) 1 %; Eosinophils # (A) 0.1 k/uL (0-0.7); Eosinophils % (A) 2 %; HGB 8.7 gm/dL (13.0-17.5); Hypochromasia Slight; Lymphocytes # (A) 1.1 k/uL (1.0-4.8); Lymphocytes % (A) 17 %; MCH 27.5 pg (25.0-35.0); MCHC 31.3 g/dL (31.0-37.0); MCV 87.9 fL (80.0-100.0); Mean Platelet Volume 6.9; Monocytes # (A) 0.2 k/uL (0-1.0); Monocytes % (A) 4 %; Neutrophils # (A) 4.4 k/uL (1.3-7.7); Neutrophils % (A) 74 %; Platelet Count 317 k/uL (150-450); RBC 3.18 m/uL (4.30-5.90); RDW 16.5 % (11.5-15.5)
[2018-06-18 15:19] LABS: Albumin 3.6 g/dL (3.5-5.0); Calcium 9.1 mg/dL (8.4-10.2); Potassium 4.6 mmol/L (3.5-5.1); Total Bilirubin 0.4 mg/dL (0.2-1.3); Total Protein 6.8 g/dL (6.3-8.2)
[2018-06-18] MEDS: LORATADINE-PSEUDOEPH 5-120 MG 1 EACH TAB.ER.12H PO SCH (17:58)
[2018-06-18] MEDS: SYMBICORT 160-4.5 MCG INHALER INHALATION SCH (19:25)
[2018-06-18 20:03] LABS: Iron Saturation 10.18 (15.00-50.00)
[2018-06-18 20:26] LABS: Folate, Serum >24.0 ng/mL
[2018-06-18] MEDS ORDERED: LORATADINE-PSEUDOEPH 5-120 MG 1 EACH TAB.ER.12H PO SCH (21:00)
--- NOTE | 2018-06-19 00:41 | PN ---
PROGRESS NOTE DATE OF SERVICE: 06/18/2018 PRESENTING COMPLAINT: Cough. INTERVAL HISTORY: Patient admitted with bilateral pneumonia. This morning was a bit congested when seen by Dr. Bryan and was also was wheezing a bit. Did get a burst of steroids. When I saw the patient he was doing much better. Does have some nasal congestion. REVIEW OF SYSTEMS: Done for constitutional, cardiovascular, GI, pulmonary; relevant findings as above. The patient has been out in the hallway. CURRENT MEDICATIONS: Reviewed that include IV Zosyn, oral prednisone. PHYSICAL EXAMINATION: Temperature 97.6, pulse 77, respiratory 18, blood pressure 143/80, pulse ox 97% on room air. GENERAL: Sitting up in a chair, awake. EYES: Pupils equal. Conjunctivae normal. NECK: JVD not raised. Mass not palpable. RESPIRATORY: Effort normal. LUNGS: Fair entry. CARDIOVASCULAR: First and second sounds normal. No edema. ABDOMEN: Soft, nontender. Liver and spleen not palpable. PSYCHIATRY: Alert and oriented x3. Mood and affect normal. INVESTIGATIONS: White count 6, hemoglobin 8.7, potassium 4.6. TSH normal. ASSESSMENT: 1. Bilateral pneumonia, could be viral pneumonitis, bacterial component cannot be ruled out; causing sepsis on admission, with clinical improvement. 2. Abnormal EKG with normal 2D echo for outpatient workup with Cardiology. 3. Hyperlipidemia. 4. Benign prostatic hypertrophy. 5. History of lung cancer with right 2/3 lobectomy. 6. Pancreatic cancer treated with Whipple procedure and chemoradiation. Does follow with [place]. 7. Hyponatremia. 8. Normocytic anemia likely from chronic from underlying history of malignancy. PLAN: For nasal congestion, we will add Claritin-D 1 tab twice a day and small burst of steroids. Lungs are greatly improved clinically. Lets see how the patient does in the next 24 hours. I did discuss with Dr. Bryan. MMODL / IJN: [id number] /
[2018-06-19] MEDS: PIPERACILLIN-TAZOBACTAM 3.375 GM in SODIUM CHLORIDE 0.9% 100 ML IVPB SCH ×2 (00:48→09:43)
[2018-06-19] MEDS: LORATADINE-PSEUDOEPH 5-120 MG 1 EACH TAB.ER.12H PO SCH (05:35)
[2018-06-19] MEDS: IPRATROPIUM-ALBUTEROL 3 ML NEB INHALATION SCH ×3 (07:45→15:50)
[2018-06-19] MEDS: SYMBICORT 160-4.5 MCG INHALER INHALATION SCH (07:45)
[2018-06-19 08:14] LABS: Calcium 9.6 mg/dL (8.4-10.2)
[2018-06-19] MEDS: ENOXAPARIN 40 MG/0.4 ML SYRINGE SQ SCH (09:42)
[2018-06-19] MEDS: ASPIRIN 81 MG PO SCH (09:43)
[2018-06-19] MEDS: MULTIVITAMINS, THERA 1 EACH TAB PO SCH (09:43)
[2018-06-19] MEDS: AZITHROMYCIN 500 MG TAB PO SCH (09:43)
[2018-06-19] MEDS: guaiFENesin 600 MG TABLET.ER PO SCH (09:43)
[2018-06-19] MEDS: predniSONE 10 MG TAB PO SCH (09:43)
[2018-06-19] MEDS: DOCUSATE 100 MG CAP PO SCH (09:43)
--- NOTE | 2018-06-19 09:50 | P.PN ---
Subjective Progress Note Date: 06/19/18 Principal diagnosis: Pneumonia and Anemia CBC improved, he has some iron deficiency component to his anemia. He is anxious to have a chest xray this am. Objective - Vital Signs Vital signs: Vital Signs Temp 97.7 F 06/19/18 05:00 Pulse 68 06/19/18 08:02 Resp 16 06/19/18 05:00 BP 148/86 06/19/18 05:00 Pulse Ox 95 06/18/18 21:00 Intake & Output 06/18/18 06/19/18 06/19/18 18:59 06:59 18:59 Intake Total 1110 Balance 1110 Intake: Intake, IV Titration 100 Amount Piperacillin-Tazobactam 3 100 .375 gm In Sodium Chloride 0.9% 100 ml @ 25 mls/hr IVPB Q8HR [facility] Rx# :[id number] Oral 1010 Other: Voiding Method Toilet # Voids 2 2 - Exam Constitutional General appearance: cooperative, no acute distress - EENT Eyes: EOMI, dentition normal ENT: NA/AT, normal oropharynx - Neck Neck: normal ROM - Cardiovascular Rhythm: regular Heart sounds: normal: S1, S2 - Gastrointestinal General gastrointestinal: normal bowel sounds, soft - Integumentary Integumentary: normal - Neurologic Neurologic: CNII-XII intact - Musculoskeletal Musculoskeletal: gait normal, generalized weakness, strength equal bilaterally - Psychiatric Psychiatric: A&O x's 3, appropriate affect, intact judgment & insight - Labs CBC & Chem 7: 06/18/18 13:10 06/19/18 07:22 Labs: Abnormal Lab Results - Last 24 Hours (Table) 06/18/18 06/18/18 06/18/18 Range/Units 13:10 13:10 13:10 RBC 3.18 L (4.30-5.90) m/uL Hgb 8.7 L (13.0-17.5) gm/dL Hct 28.0 L (39.0-53.0) % RDW 16.5 H (11.5-15.5) % Sodium (137-145) mmol/L Glucose 119 H (74-99) mg/dL Iron 34 L (65-175) ug/dL Iron Saturation 10.18 L (15.00-50.00) Total Protein (PEP) 6.0 L (6.2-8.2) g/dL CA 19-9 Antigen (0.0-34.9) U/mL 06/18/18 06/19/18 Range/Units 13:10 07:22 RBC (4.30-5.90) m/uL Hgb (13.0-17.5) gm/dL Hct (39.0-53.0) % RDW (11.5-15.5) % Sodium 136 L (137-145) mmol/L Glucose (74-99) mg/dL Iron (65-175) ug/dL Iron Saturation (15.00-50.00) Total Protein (PEP) (6.2-8.2) g/dL CA 19-9 Antigen 38.5 H (0.0-34.9) U/mL Microbiology - Last 24 Hours (Table) 06/14/18 21:01 Blood Culture - Preliminary Blood No Growth after 96 hours 06/13/18 17:40 Blood Culture - Preliminary Blood No Growth after 120 hours 06/15/18 11:23 Gram Stain - Final Sputum Sputum Culture - Final Corine albicans Beta Hemolytic Strep Group G Assessment and Plan Plan: Assessment and Recommendations: 1. Community Acquired Pneumonia - Per Primary Team - IV Antibiotics and supportive care 2. Recent History Stage 2 Pancreatic Adenocarcinoma - Diagnosed in May 2017, Status POst [facility]-adjuvant Chemotherapy and Radiation June)-Aug (2017) - Status Post Whipple August 2017 - COmplicated infection post operatively requiring TPN and IV antibiotics - No signs of recurrence - FOllow-up with Dr. Chauhan after discharge 3. Remote history of early stage lung cancer and Melanoma both treated surgically 4. Normocytic Anemia with iron deficiency component secondary to nutritional absorption - No signs of bleeding and last colonoscopy stable per patient 2 years prior - Will give a dose IV Iron - Follow-up with Dr. Arthur Chauhan at [facility]. Thank you for allowing us to participate in the care of this patient we will follow along with you. Ok for discharge from onc/hem standpoint, ok to give iron prior. Megan Urbina [facility]
[2018-06-19] MEDS ORDERED: SODIUM FERRIC GLUCONAT-SUCROSE 125 MG in SODIUM CHLORIDE 0.9% 100 ML IVPB SCH (10:00)
--- NOTE | 2018-06-19 11:03 | P.PN ---
Subjective Progress Note Date: 06/19/18 Principal diagnosis: Bilateral pneumonia, suspect community-acquired This is a very pleasant 72-year-old gentleman who follows with Dr. Mendoza as his primary care physician. He has a history of lung cancer status post lobectomy 2 on the right side [address] Yung. No chemo or radiation was required. He also has a history of melanoma on his back between the shoulder blades 10 years ago that was surgically resected. No chemo or radiation treatments done. Then in May 2017 he was diagnosed with adenocarcinoma of the pancreas. He had undergone 25 radiation treatments and chemotherapy with subsequent Whipple procedure in August 2017 performed in [place]. Following the surgery he did developed an abdominal infection was back in [place] for 3 weeks. Since that time however he had been doing quite well. He exercises for an hour 6 or 7 days a week. He is only on aspirin, multivitamin, fish oil in the outpatient setting. Approximate 4 days however he developed increasing shortness of breath, cough and congestion and presented here to the emergency room on 06/13/[address] angiogram ruled out pulmonary embolism there was noted patchy infiltrate and atelectasis in the posterior lung bases that was new compared to his last CT in March 2018. The pneumonia was considered and he was admitted for the same. The patient is seen today 06/18/2018 in follow-up on the regular medical floor. He is currently awake and alert in no acute distress. He is still having some loose nonproductive cough. Some wheezing. Overall he does feel better. Sputum was positive for Corine and beta-hemolytic strep group G. He is currently on Zosyn and azithromycin. He is maintaining good O2 saturations in the upper 90s on room air. He's been afebrile. Hemodynamically stable. Creatinine 1.01. She is seen today 06/19/2018 in the regular medical floor. He is currently sitting up in a chair at the bedside. He is awake and alert in no acute distress. He is nearly back to his baseline as far as his breathing is concerned. He is maintaining good O2 saturations in the 90s on room air. He's been afebrile. He's been hemodynamically stable. Sodium 136. Potassium 5.0. Creatinine 1.04. Hoping to go home today. Objective - Vital Signs Vital signs: Vital Signs Temp 97.7 F 06/19/18 05:00 Pulse 68 06/19/18 08:02 Resp 16 06/19/18 05:00 BP 148/86 06/19/18 05:00 Pulse Ox 95 06/18/18 21:00 Intake & Output 06/18/18 06/19/18 06/19/18 18:59 06:59 18:59 Intake Total 1110 Balance 1110 Intake: Intake, IV Titration 100 Amount Piperacillin-Tazobactam 3 100 .375 gm In Sodium Chloride 0.9% 100 ml @ 25 mls/hr IVPB Q8HR [facility] Rx# :[id number] Oral 1010 Other: Voiding Method Toilet Toilet # Voids 2 2 - Exam - Constitutional General appearance: average body habitus, no acute distress. On room air. Back to his baseline. - EENT Eyes: EOMI, PERRLA ENT: hearing grossly normal Ears: bilateral: normal - Neck Neck: normal ROM Carotids: bilateral: upstroke normal Thyroid: bilateral: normal size - Respiratory Respiratory: bilateral: Clear - Cardiovascular Rhythm: regular Heart sounds: normal: S1, S2 - Gastrointestinal General gastrointestinal: normal bowel sounds - Integumentary Integumentary: normal turgor - Neurologic Neurologic: CNII-XII intact - Musculoskeletal Musculoskeletal: generalized weakness - Psychiatric Psychiatric: A&O x's 3, appropriate affect, intact judgment & insight - Labs CBC & Chem 7: 06/18/18 13:10 06/19/18 07:22 Labs: Abnormal Lab Results - Last 24 Hours (Table) 06/18/18 06/18/18 06/18/18 Range/Units 13:10 13:10 13:10 RBC 3.18 L (4.30-5.90) m/uL Hgb 8.7 L (13.0-17.5) gm/dL Hct 28.0 L (39.0-53.0) % RDW 16.5 H (11.5-15.5) % Sodium (137-145) mmol/L Glucose 119 H (74-99) mg/dL Iron 34 L (65-175) ug/dL Iron Saturation 10.18 L (15.00-50.00) Total Protein (PEP) 6.0 L (6.2-8.2) g/dL CA 19-9 Antigen (0.0-34.9) U/mL 06/18/18 06/19/18 Range/Units 13:10 07:22 RBC (4.30-5.90) m/uL Hgb (13.0-17.5) gm/dL Hct (39.0-53.0) % RDW (11.5-15.5) % Sodium 136 L (137-145) mmol/L Glucose (74-99) mg/dL Iron (65-175) ug/dL Iron Saturation (15.00-50.00) Total Protein (PEP) (6.2-8.2) g/dL CA 19-9 Antigen 38.5 H (0.0-34.9) U/mL Microbiology - Last 24 Hours (Table) 06/14/18 21:01 Blood Culture - Preliminary Blood No Growth after 96 hours 06/13/18 17:40 Blood Culture - Preliminary Blood No Growth after 120 hours 06/15/18 11:23 Gram Stain - Final Sputum Sputum Culture - Final Corine albicans Beta Hemolytic Strep Group G Assessment and Plan Assessment: Impression: #1 Dyspnea secondary to bilateral pneumonia, suspect community-acquired. Improved. On room air. #2 Febrile illness secondary to above, improved. #3 History of right lung cancer status post lobectomy 17 years ago. No chemo or radiation at that time. #4 History of melanoma on the back status post resection. #5 Adenocarcinoma of the pancreas, status post radiation chemotherapy. Status post Whipple procedure in August 2017. #6 Hyperlipidemia. #[address] and T wave abnormalities. #8 Anemia. Plan: The patient was seen and evaluated by Dr. Bryan. He is cleared for discharge from the pulmonary standpoint. Complete his antibiotics. Complete a prednisone taper. Follow-up with Dr. Patrick in our office in 1-2 weeks' time. He is encouraged to call sooner with any recurrence of symptoms or any other questions or concerns. I, the cosigning physician, performed a history & physical examination of the patient. Lungs sounds clear. Maintaining good O2 saturations in the 90s on room air. I discussed the assessment and plan of care with my nurse practitioner, Pati Kerns. I attest to the above consultation as dictated by her. t
--- NOTE | 2018-06-19 11:44 | XR ---
EXAMINATION TYPE: XR chest 2V DATE OF EXAM: 06/19/2018 COMPARISON: Chest x-ray from [address] chest from 6 days ago. HISTORY: Shortness of breath. TECHNIQUE: Frontal and lateral views of the chest are obtained. FINDINGS: There is stable right subclavian Mediport catheter. Background chronic emphysematous change remains present There is no new suspicious focal air space opacity, pleural effusion, or pneumothor ax seen. Patchy bibasilar opacity on CT is less well seen on plain films, some residual right basilar infiltrate is felt present. The cardiac silhouette size is stable and within normal limits. Multilev el spurring in thoracic spine is present. IMPRESSION: Chronic emphysematous change with residual right basilar infiltrate and/or atelectasis. No new infiltrate is seen. No significant change from most recent chest x-ray
[2018-06-19 11:45] VITALS: BP 134/79; PULSE 72; RESP 20; TEMP 97.9
[2018-06-19 12:32] LABS: Albumin 3.26 g/dL (3.80-4.90); Gamma Globulin 0.79 g/dL (0.70-1.50)
[2018-06-19 15:57] LABS: Anisocytosis Slight; Basophils % (A) 0 %; Eosinophils % (A) 0 %; HCT 28.8 % (39.0-53.0); HGB 9.3 gm/dL (13.0-17.5); Lymphocytes # (A) 0.7 k/uL (1.0-4.8); Lymphocytes % (A) 9 %; MCH 28.1 pg (25.0-35.0); MCHC 32.2 g/dL (31.0-37.0); MCV 87.5 fL (80.0-100.0); Mean Platelet Volume 7.2; Monocytes # (A) 0.2 k/uL (0-1.0); Monocytes % (A) 3 %; Neutrophils # (A) 6.3 k/uL (1.3-7.7); Neutrophils % (A) 87 %; Platelet Count 360 k/uL (150-450); RBC 3.29 m/uL (4.30-5.90); RDW 16.5 % (11.5-15.5); WBC 7.2 k/uL (3.8-10.6)
--- NOTE | 2018-06-20 08:19 | DS ---
DISCHARGE SUMMARY DATE OF ADMISSION: 06/13/2018. DATE OF DISCHARGE: 06/19/2018 FINAL DIAGNOSES: 1. Bilateral pneumonia, could be viral pneumonitis, bacterial component, possible causing sepsis on admission. 2. Abnormal EKG with normal 2D echo for outpatient workup with Cardiology. 3. Hyperlipidemia. 4. Benign prostatic hypertrophy. 5. History of lung cancer with right 2/3 lobectomy. 6. Pancreatic cancer treated with Whipple procedure and chemo radiation, does follow up at [place]. 7. Hyponatremia, normal osmolar. 8. Normocytic anemia likely from chronic history of malignancy. 9. Acute sinusitis. CONSULTATION: 1. Dr. Patrick from Pulmonary. 2. Dr. Aranda from Oncology. 3. Dr. Dunia Mora from Cardiology. HOSPITAL COURSE: This patient presented with bilateral pneumonia. Responded well to antibiotics. Also had sinus congestion that responded well to antihistaminic and decongestant. Patient had a normal EKG, did have a 2-D echocardiogram that was unremarkable. Seen by Dr. Dunia Mora who follows the patient, otherwise. Patient doing really better, up and about, breathing good. Care was discussed with the patient. PHYSICAL EXAMINATION: Temperature 97.9, pulse 72, respiratory 20, blood pressure 134/79. LUNGS: Fair air entry. CARDIOVASCULAR: First and second sounds are normal. INVESTIGATIONS: White count 7.2, hemoglobin 9.3, BUN and creatinine are normal. A 2D echocardiogram showed preserved LV function, no wall motion abnormality was reported. EF is 55%-60%. . DISCHARGE MEDICATIONS: 1. Vitamin D3 two thousand units p.o. daily. 2. Fish oil 2 capsules p.o. daily. 3. Centrum Complete multivitamin 1 tablet p.o. daily. 4. Aspirin 81 mg a day. 5. Ventolin HFA 1-2 puffs q.6 p.r.n. 6. Augmentin 875 one tablet p.o. b.i.d. for 6 tablets. 7. Symbicort 160/4.5 two puffs b.i.d. 8. Atrovent HFA 2 puffs q.i.d. 9. Claritin-D 1 tablet q.12 hours 10 tablets. 10.Prednisone taper. Follow up with Dr. Patrick in 1 week. Follow up with Dr. Art Mendoza in 3 days. Follow up with Dr. Dunia Mora after his trip from [place]. MMODL / IJN: [id number] /
== END 2018-06-19 16:50 | disposition home or self-care (01) | DRG 871 ==
LOC: EC 15:59 → 3NMEDONC 18:47
PROVIDERS: ADMIT Hospitalist; ATTEND Hospitalist
DX: A41.9 Sepsis, unspecified organism (principal); J12.9 Viral pneumonia, unspecified; E87.1 Hypo-osmolality and hyponatremia; J44.0 Chronic obstructive pulmonary disease with (acute) lower respiratory infection; J44.1 Chronic obstructive pulmonary disease with (acute) exacerbation; J98.11 Atelectasis; Q43.8 Other specified congenital malformations of intestine; Z85.118 Personal history of other malignant neoplasm of bronchus and lung; Z85.07 Personal history of malignant neoplasm of pancreas; D63.0 Anemia in neoplastic disease; D50.9 Iron deficiency anemia, unspecified; E78.5 Hyperlipidemia, unspecified; E86.0 Dehydration; I08.3 Combined rheumatic disorders of mitral, aortic and tricuspid valves; Z86.73 Personal history of transient ischemic attack (TIA), and cerebral infarction without residual deficits; N40.0 Benign prostatic hyperplasia without lower urinary tract symptoms; Z79.82 Long term (current) use of aspirin; Z85.820 Personal history of malignant melanoma of skin; Z87.891 Personal history of nicotine dependence; Z90.2 Acquired absence of lung [part of]; Z90.411 Acquired partial absence of pancreas; Z90.49 Acquired absence of other specified parts of digestive tract; Z92.21 Personal history of antineoplastic chemotherapy; Z92.3 Personal history of irradiation; Z88.1 Allergy status to other antibiotic agents; Z79.899 Other long term (current) drug therapy
CPT/HCPCS: 36415; 71046; 71275; 80048; 80053; 82550; 82553; 82728; 82746; 83540; 83550; 83615; 83735; 83880; 83921; 83930; 84165; 84443; 84484; 85025; 85045; 85610; 85730; 86301; 86334; 87040; 87070; 87205; 87502; 93005; 93306; 94640; 94760; 96365; 96366; 96368; 99285

== ENCOUNTER 2021-05-04 10:11 | Day surgery (SDC) | payer MEDICARE ==
[2021-05-02 14:39] VITALS: BMI 25.5
[~2021-05-04 10:11] MED LIST: ALPRAZolam 0.25 MG TAB PO PRN; ALPRAZolam 0.5 MG TAB PO PRN; ASPIRIN 325 MG TAB PO STA; ATORVASTATIN 80 MG TAB PO STA; HEPARIN SODIUM,PORCINE 10,000 UNIT in SODIUM CHLORIDE 0.9% 1,000 ML IRRIGATION PRN; HEPARIN SODIUM,PORCINE 2,500 UNIT in SODIUM CHLORIDE 0.9% 250 ML IRRIGATION PRN; NITROGLYCERIN SL TABS 0.4 MG TAB SUBLINGUAL PRN; SODIUM CHLORIDE 0.9% 1,000 ML in EMPTY BAG 1 BAG IV SCH
[2021-05-04 10:46] VITALS: RESP 16; TEMP 97.8
[2021-05-04] MEDS ORDERED: SODIUM CHLORIDE 0.9% 1,000 ML IV ONE (11:03)
[2021-05-04 11:05] LABS: Basophils # (A) 0.1 k/uL (0-0.2); Basophils % (A) 1 %; Eosinophils # (A) 0.1 k/uL (0-0.7); Eosinophils % (A) 1 %; HCT 35.8 % (39.0-53.0); HGB 11.6 gm/dL (13.0-17.5); Lymphocytes # (A) 0.9 k/uL (1.0-4.8); Lymphocytes % (A) 10 %; MCH 28.4 pg (25.0-35.0); MCHC 32.5 g/dL (31.0-37.0); MCV 87.4 fL (80.0-100.0); Mean Platelet Volume 7.2; Monocytes # (A) 0.5 k/uL (0-1.0); Monocytes % (A) 6 %; Neutrophils # (A) 6.8 k/uL (1.3-7.7); Neutrophils % (A) 80 %; Platelet Count 229 k/uL (150-450); RBC 4.09 m/uL (4.30-5.90); RDW 14.7 % (11.5-15.5); WBC 8.4 k/uL (3.8-10.6)
[2021-05-04 11:22] LABS: Potassium 5.1 mmol/L (3.5-5.1)
[2021-05-04] MEDS ORDERED: LIDOCAINE 1% INJ 10MG/ML (20 ML MDV) ONE ×2 (11:51→13:08)
[2021-05-04] MEDS ORDERED: HEPARIN SODIUM 1,000 UN/ML (10ML VL) ONE ×2 (11:51→13:08)
[2021-05-04] MEDS ORDERED: VERAPAMIL 2.5 MG/ML 2 ML AMP ONE (13:07)
[2021-05-04] MEDS ORDERED: MIDAZOLAM 2 MG/2 ML VIAL IV ONE (13:30)
[2021-05-04] MEDS ORDERED: LIDOCAINE 1% INJ 10MG/ML (20 ML MDV) SQ ONE (13:34)
[2021-05-04] MEDS ORDERED: VERAPAMIL SYRINGE (5 MG/10 ML) INTRAARTER ONE (13:35)
[2021-05-04] MEDS: HEPARIN SODIUM 1,000 UN/ML (10ML VL) IV ONE ×2 (13:38→13:47)
[2021-05-04] MEDS ORDERED: ADENOSINE 90 MG in SODIUM CHLORIDE 0.9% 60 ML IVP ONE (14:10)
[2021-05-04] MEDS ORDERED: IOPAMIDOL-370 125ML BTL INJ ONE (14:16)
[2021-05-04] MEDS ORDERED: SODIUM CHLORIDE 0.9% 1,000 ML IV SCH (14:30)
[2021-05-04] MEDS ORDERED: RX INFO: IV CONTRAST WAS GIVEN 1 EACH MISC MISCELLANE PRN (14:30)
[2021-05-04] MEDS ORDERED: ACETAMINOPHEN TAB 325 MG TAB PO PRN (14:52)
--- NOTE | 2021-05-04 14:59 | CC ---
CARDIAC CATHETERIZATION REPORT DATE OF PROCEDURE: 05/04/2021. PROCEDURES PERFORMED: 1. Selective right and left coronary angiogram. 2. Left heart catheterization. 3. Fractional flow reserve (FFR) of the right coronary artery. INDICATION: This is a very pleasant 75-year-old gentleman with hypertension and dyslipidemia who was experiencing symptoms of chest pain and shortness of breath with exertion concerning for severe underlying coronary artery disease. Because of that, a heart catheterization was advised. APPROACH: Right radial artery. COMPLICATIONS: None. LEVEL OF SEDATION: Moderate, with sedation length of 44 minutes. PROCEDURE DESCRIPTION: After obtaining informed consent, the patient was brought to the cardiac cath lab radiology technician. The right radial artery was cannulated using micropuncture technique. The micropuncture wire passed easily. Then I placed a 6-Turkmen sheath in the right radial artery. I gave the patient 2 mg of verapamil IA and 6000 units of heparin IV. Selective right and left coronary angiogram was performed using JR4 and JL3.5 catheters. After that I did left heart catheterization using a 5-Turkmen pigtail catheter. After that I did FFR (fractional flow reserve) of the right coronary artery. Please see separate paragraph for that. The procedure was completed without any complication. SELECTIVE CORONARY ANGIOGRAM: 1. The right coronary artery is a large-caliber vessel and is a dominant vessel. The proximal and mid RCA is calcified with mild disease only. The RCA distally has a tubular lesion with an ulcerated lesion that appeared to be in the range of 60%. FFR was performed and came in to be at 0.84. At that point we deferred any intervention on the right coronary artery. 2. The left main is a large-caliber vessel. The left main is angiographically normal. It bifurcates into LCX and LAD. 3. The LCX is a large-caliber vessel. It is a nondominant vessel. The LCX is angiographically normal and gives rise to a large OM branch which appeared to be angiographically normal. 4. The LAD is a large-caliber vessel. The LAD is calcified. The proximal LAD has mild disease only. The mid and distal LAD appeared to be angiographically normal. The LAD gives rise to a large diagonal branch which seems to be angiographically normal. 5. HEMODYNAMICS: The LVEDP was about 12 mmHg without significant gradient across the aortic valve. FFR OF THE RIGHT CORONARY ARTERY: After zeroing the Doppler wire and equalizing between the Doppler wire and the guiding catheter, which was a JR4 guiding catheter, we did wire the right coronary artery and the wire was advanced to the distal RCA. We did an FFR per IV adenosine infusion and the FFR came in to be at 0.84, which is nonischemic, and the procedure was completed at that point. CONCLUSION: 1. Calcified right and left coronary system. 2. Intermediate to severe lesion involving the mid RCA. FFR was performed and came in to be at 0.84. 3. Normal left-sided filling pressure. POST-PROCEDURE MANAGEMENT: 1. Medical treatment. 2. Aggressive cholesterol control. 3. Risk factor modifications. 4. Follow up with the patient. MMODL / IJN: [id number] /
[2021-05-04 17:10] VITALS: BP 158/72; PULSE 64
== END 2021-05-04 18:29 | disposition home or self-care (01) ==
LOC: CATHCVL 10:11
PROVIDERS: ATTEND Internal Medicine Interventional Cardiology
DX: I25.110 Atherosclerotic heart disease of native coronary artery with unstable angina pectoris (principal); I10 Essential (primary) hypertension; E78.00 Pure hypercholesterolemia, unspecified; Z85.118 Personal history of other malignant neoplasm of bronchus and lung; Z85.07 Personal history of malignant neoplasm of pancreas; F17.200 Nicotine dependence, unspecified, uncomplicated; Z82.49 Family history of ischemic heart disease and other diseases of the circulatory system; Z88.0 Allergy status to penicillin; Z79.890 Hormone replacement therapy; Z79.51 Long term (current) use of inhaled steroids; Z79.899 Other long term (current) drug therapy
CPT/HCPCS: 93571; 93458; 80048; 85025; 87635; C1887; C1894; C1769; J2250; J2001; J1644; J0153; Q9967

== ENCOUNTER → 2021-10-14 | Outpatient (CLI) | payer MEDICARE ==
--- NOTE | 2021-10-19 17:15 | PE ---
Nuclear medicine PET/CT HISTORY: C 34.90, right lung carcinoma, subsequent Correlation to prior nuclear medicine PET/CT 05/19/2017, to chest x-ray 09/30/2021 Patient received 9.8 mCi F-18 FDG intravenously and delayed scanning was performed from the skull bas e to the mid thighs. A localization and attenuation correction CT scan was performed. Average mediastinal uptake SUV is 2.4, average liver uptake SUV is 2.9. Chest and neck: There is no cervical or supraclavicular adenopathy. Left upper lobe nodule is present in the subpleural location measuring 14 mm and shows associated hypermetabolic uptake SUV 5.1. Posto p changes are noted. No pleural or pericardial effusion. Right hilar adenopathy is suspected, there i s mild uptake SUV 3.3. Coronary artery disease is present, there is prominence the pulmonary artery, consider underlying pulmonary artery hypertension, there is a scarring in the lungs. ABDOMEN: There is no ascites or retroperitoneal adenopathy. No evident adrenal mass or liver mass. No suspicious uptake. Postprocedural change noted to the iliac vasculature. Uptake to the bowel is felt likely to be physiologic. Pancreas appears atrophic there [s likely been postop change Osseous structures show some sclerotic density involving the anterior ribs on the left, suggestion of prior fractures to the third, fourth, fifth, sixth ribs, some mild associated uptake SUV 2.8, correl ate for history of trauma. IMPRESSION: New subpleural nodule with associated uptake in the left upper lobe. Postop changes. Joshua elate for history of trauma to the ribs.
== END | disposition home or self-care (01) ==
LOC: RADPETMAIN 14:21
PROVIDERS: ATTEND Internal Medicine
DX: C34.91 Malignant neoplasm of unspecified part of right bronchus or lung (principal); R91.1 Solitary pulmonary nodule
CPT/HCPCS: 78815; A9552

== ENCOUNTER → 2022-01-19 | Outpatient (CLI) | payer MEDICARE ==
--- NOTE | 2022-01-19 14:02 | CT ---
EXAMINATION TYPE: CT chest w con CT DLP: 373.10 mGycm, Automated exposure control for dose reduction was used. DATE OF EXAM: 01/19/2022 1:24 PM COMPARISON: PET fusion 10/14/2021, CT angiogram of chest 06/13/2018 CLINICAL INDICATION:Male, 76 years old with history of C34.90 Malignant tumor lung; , Possible malign ant lung tumor. Hx lung ca, pancreatic ca. Hx lung removal. TECHNIQUE: Multiple axial images were obtained through the chest. Contrast used:70 mL of Isovue 300 with IV Contrast, Oral contrast used: none. FINDINGS: LUNGS/ PLEURA: Right hilar soft tissue mass measuring 2.9 x 2.4 cm (previously 2.6 x 1.6 cm) and appe ars larger on today's exam when comparing to the PET scan. Left lung surgical changes are present. No evidence for recurrence. Prior area of FDG activity in the subpleural region of the lingula has decr eased in size and now is only minimal nodularity measuring 4 mm on series 4 image 36. No focal consolidation, pneumothorax or pleural effusion. There is moderate to severe centrilobular e mphysema changes. Scattered peripheral reticulations are again seen. AIRWAY: Patent and unremarkable. HEART: Size within normal limits. Mild coronary artery atherosclerosis. MEDIASTINUM: Right hilar adenopathy as described above. No additional enlarged lymph nodes are identi fied. VASCULATURE: No aortic aneurysm. Atherosclerosis of the arterial vasculature. MUSCULOSKELETAL: No acute osseous abnormalities, left anterior rib 3 Cortical irregularity suspicious for prior trauma. Multilevel disc degeneration changes are seen throughout the spine. SOFT TISSUES/LYMPH NODES: Unremarkable. LOWER NECK: No significant findings. UPPER ABDOMEN: Scattered clonic diverticula are seen within the upper abdomen. To small to characteri ze hypodensities within the liver. Postsurgical changes to the stomach. IMPRESSION: 1. Right pulmonary hilum lymph soft tissue which is partially calcified is larger than prior PET scan from 10/14/2021 and is concerning for recurrence/persistent disease until proven otherwise. Attention on follow-up PET/CT imaging. Start 2. Interval decrease in nodularity within the lingula which could've represented infectious/inflammat ory process on prior. Postsurgical changes within the left upper lung appears stable. 3. Moderate to severe is COPD changes. 4. Left anterior 3 healing changes correlate for prior history of trauma. Attention on follow-up imag ing.
== END | disposition home or self-care (01) ==
LOC: RADCTMAIN 11:47
PROVIDERS: ATTEND Internal Medicine
DX: J44.9 Chronic obstructive pulmonary disease, unspecified (principal)
CPT/HCPCS: 82565; 84520; 71260; 36415; Q9967

== ENCOUNTER 2022-02-09 11:08 | Day surgery (SDC) | payer MEDICARE ==
[2022-02-07 12:55] VITALS: BMI 25.7
[~2022-02-09 11:08] MED LIST changes: +ALBUTEROL NEB (CONC) 2.5 MG/0.5 ML INHALATION ONE; -ALPRAZolam 0.25 MG TAB PO PRN; -ALPRAZolam 0.5 MG TAB PO PRN; -ASPIRIN 325 MG TAB PO STA; -ATORVASTATIN 80 MG TAB PO STA; -HEPARIN SODIUM,PORCINE 10,000 UNIT in SODIUM CHLORIDE 0.9% 1,000 ML IRRIGATION PRN; -HEPARIN SODIUM,PORCINE 2,500 UNIT in SODIUM CHLORIDE 0.9% 250 ML IRRIGATION PRN; +HYDROCORTISONE SUCCINATE 100 MG/2 ML VIAL IV STA; +HYDROmorphone 0.5 MG/0.5 ML SYRINGE IVP PRN; +LACTATED RINGERS 1,000 ML IV SCH; +LIDOCAINE 1% (10MG/ML) FOR IV START INTRADERMA PRN; +LIDOCAINE 2% (PF) 20 MG/ML 5 ML VIAL INHALATION ONE; +LIDOCAINE VISCOUS 300 MG/15 ML CUP MUCOUS MEM ONE; -NITROGLYCERIN SL TABS 0.4 MG TAB SUBLINGUAL PRN; +ONDANSETRON 4 MG/2 ML VIAL IVP ONE; -SODIUM CHLORIDE 0.9% 1,000 ML in EMPTY BAG 1 BAG IV SCH
[2022-02-09 11:51] LABS: Glucose,Whole Blood 100 mg/dL (70-110)
[2022-02-09] MEDS ORDERED: PROPOFOL 10 MG/ML 20 ML VIAL IV ONE (12:48)
[2022-02-09] MEDS ORDERED: MIDAZOLAM 2 MG/2 ML VIAL ONE (12:48)
[2022-02-09] MEDS ORDERED: fentaNYL (PF) 50 MCG/ML 2 ML AMP ONE (12:48)
[2022-02-09] MEDS ORDERED: SUCCINYLCHOLINE CHLORIDE 200 MG/10 ML VIAL IV ONE (12:48)
[2022-02-09] MEDS ORDERED: ROCURONIUM 10 MG/ML (5 ML VIAL) IV ONE (12:48)
[2022-02-09] MEDS ORDERED: ePHEDrine 50 MG/ML 1 ML VIAL ONE (12:48)
[2022-02-09] MEDS ORDERED: PHENYLEPHRINE-0.9% NACL SYG 1,000 MCG/10 ML SYRINGE ONE (12:48)
[2022-02-09] MEDS ORDERED: LIDOCAINE 2% INJ 20 MG/ML (2 ML VIAL) ONE (12:48)
--- NOTE | 2022-02-09 14:00 | P.PCN ---
Date of Procedure: 02/09/22 Preoperative Diagnosis: Right paratracheal lymph node Postoperative Diagnosis: Right paratracheal lymph node Procedure(s) Performed: Endobronchial ultrasound Transbronchial needle aspirate of right paratracheal lymph node, station 4R Anesthesia: YAHAIRA Surgeon: Valdez Martinez Pathology: other Condition: stable Disposition: same day Operative Findings: After obtaining the consent the patient was taken to the OR suite he was intubated and put on MV by anesthesia then the scope was advanced to the ET tube until the Trachea was seen and it was normal and then the sagrario appears normal then the scope advanced to the left main and SHWETA LB1-LB3 were seen and no endobronchial lesions were seen then the scope advanced to the lingula and the LB4 and LB5 were seen and no endobronchial lesions were seen the scope retracted and advanced to the left lower lobes LB6 to LB12 were seen one by one and no endobronchial lesions, then the scope was retracted back to the sagrario and advanced to the Right main and RUL stump was seen and was within normal limits and he scope then retracted and advanced to the BI and RML RB4 and RB5 were seen and no endobronchial lesions were seen then it was retracted and advanced to the RLL RB6 to RB12 were seen one by one and no endobronchial lesions. Then EBUS was used and the lymph nodes were examined. Direct measurement of the mediastinal lymph nodes revealed a 2x1.5 cm station 4R lymph node, and no other significant lymphadenopathy was seen within the rest of the mediastinum. . I performed transbronchial needle aspiration of station 4 R lymph node were a total of 7 passes were obtained. and he was given samples of confirmed by pathology the bedside. The procedure was terminated. Therapeutic airway suctioning was done. No major bleeding and the scope was removed and taken out in total the patient was send to the floor in stable condition
[2022-02-09 14:09] VITALS: RESP 16; TEMP 97
[2022-02-09 15:05] VITALS: BP 149/81; PULSE 71
== END 2022-02-09 15:21 | disposition home or self-care (01) ==
LOC: ORWHC2ENDO 11:08
PROVIDERS: ATTEND Internal Medicine Critical Care Medicine
DX: C78.01 Secondary malignant neoplasm of right lung (principal); Z88.0 Allergy status to penicillin; Z88.1 Allergy status to other antibiotic agents; Z79.82 Long term (current) use of aspirin; Z79.899 Other long term (current) drug therapy; Z79.890 Hormone replacement therapy; Z82.49 Family history of ischemic heart disease and other diseases of the circulatory system; Z83.3 Family history of diabetes mellitus; Z87.891 Personal history of nicotine dependence; Z85.820 Personal history of malignant melanoma of skin; C25.9 Malignant neoplasm of pancreas, unspecified; E78.5 Hyperlipidemia, unspecified; J44.9 Chronic obstructive pulmonary disease, unspecified; E07.9 Disorder of thyroid, unspecified; K21.9 Gastro-esophageal reflux disease without esophagitis; I73.9 Peripheral vascular disease, unspecified; Z88.3 Allergy status to other anti-infective agents
CPT/HCPCS: 88305; 88173; 88342; 88341; 31652; J2250; J0330; J1720; J2405; J3010; J2370; J2704; J2001